=== PATIENT | male | born 1965 | race Caucasian/White ===

== ENCOUNTER → 2017-12-12 | Outpatient (CLI) | payer BC ==
[~2017-12-12] MED LIST: AMOXICILLIN875 MG PO; ATIVAN0.5 MG PO; AUGMENTIN XR 101 TER PO; COREG6.25 MG PO; COUMADIN6 M1 PO; COZAAR25 MG PO; DAYPRO600 M1 PO; LEVAQUIN750 M1 PO; LISINOPRIL5 MG PO; LOPRESSOR25 MG PO; METOPROLOL SUCC25 M2 PO; NEXIUM20 M1 PO; NEXIUM40 MG PO; NOVAPLUS V0.09 MG/Ac IH; PAXIL30 MG PO; PREDNISONE10 MG PO; VICODIN 500 MG-1 TAB PO
== END | disposition home or self-care (01) ==
LOC: RAD 14:51
DX: M25.461 Effusion, right knee (principal); M25.561 Pain in right knee

== ENCOUNTER → 2018-01-09 | Outpatient (CLI) | payer BC ==
[2018-01-09 13:36] LABS: BASO % 0.7 % (0.0-1.0); EOS # 0.1 10*3/uL (0.0-0.4); EOS % 2.5 % (1.0-4.0); HEMOGLOBIN 14.3 g/dl (14.0-18.0); LYMPH # 1.2 10*3/uL (1.3-4.4); LYMPH % 20.5 % (27.0-41.0); MEAN CELL VOLUME 97.2 fl (80.0-94.0); MEAN CORPUSCULAR HGB 33.1 pg (27.0-31.0); MEAN PLATELET VOLUME 9.7 fl (9.6-12.3); MONO # 0.6 10*3/uL (0.1-1.0); MONO % 11.2 % (3.0-9.0); NEUT # 3.6 10*3/uL (2.3-7.9); NEUT % 64.9 % (47.0-73.0); PLATELET COUNT AUTOMATED 260 10*3/uL (130-400); RED BLOOD COUNT 4.32 10*6/uL (4.50-5.90); RED CELL DISTRI WIDTH 14.2 % (0-14.5); WHITE BLOOD COUNT 5.6 10*3/uL (4.8-10.8)
[2018-01-09 13:45] LABS: ALBUMIN 3.8 gm/dl (3.1-4.5); ALKALINE PHOSPHATASE 66 U/L (45-117); BUN 10 mg/dl (7-24); CHLORIDE 106 mmol/L (98-107); CREATININE 0.99 mg/dL (0.70-1.30); POTASSIUM 4.2 mmol/L (3.5-5.1); SGOT/AST 31 IU/L (3-35); SGPT/ALT 26 U/L (12-78); SODIUM 142 mmol/L (136-145); TOTAL PROTEIN 7.5 gm/dL (6.4-8.2)
[2018-01-10 08:09] LABS: RHEUMATOID ARTHRITIS FACTOR 10.6 IU/mL (0.0-13.9)
== END | disposition home or self-care (01) ==
LOC: LAB 12:50
PROVIDERS: Family Medicine Adult Medicine
DX: L03.115 Cellulitis of right lower limb (principal)

== ENCOUNTER → 2018-08-01 | Outpatient (CLI) | payer BC ==
[2018-08-01 15:06] LABS: BASO # 0.1 10*3/uL (0.0-0.1); BASO % 0.8 % (0.0-1.0); EOS # 0.1 10*3/uL (0.0-0.4); EOS % 2.2 % (1.0-4.0); HEMATOCRIT 39.9 % (42.0-52.0); LYMPH # 1.2 10*3/uL (1.3-4.4); LYMPH % 19.6 % (27.0-41.0); MEAN CELL VOLUME 100.5 fl (80.0-94.0); MEAN CORPUSCULAR HGB 35.3 pg (27.0-31.0); MEAN CORPUSCULAR HGB CONC 35.1 g/dl (33.0-37.0); MEAN PLATELET VOLUME 9.6 fl (9.6-12.3); MONO # 0.8 10*3/uL (0.1-1.0); MONO % 13.2 % (3.0-9.0); NEUT # 3.8 10*3/uL (2.3-7.9); PLATELET COUNT AUTOMATED 166 10*3/uL (130-400); RED BLOOD COUNT 3.97 10*6/uL (4.50-5.90); RED CELL DISTRI WIDTH 12.9 % (0-14.5); WHITE BLOOD COUNT 5.9 10*3/uL (4.8-10.8)
[2018-08-01 15:27] LABS: ALKALINE PHOSPHATASE 82 U/L (45-117); BUN 11 mg/dl (7-24); CHLORIDE 103 mmol/L (98-107); CHOLESTEROL 188 mg/dL (<200); CREATININE 0.94 mg/dL (0.70-1.30); HDL CHOLESTEROL 90 mg/dl (40-60); LDL CHOLESTEROL 80 mg/dL (9-159); POTASSIUM 4.2 mmol/L (3.5-5.1); SGOT/AST 91 IU/L (3-35); SGPT/ALT 63 U/L (12-78); SODIUM 138 mmol/L (136-145); TOTAL PROTEIN 7.3 gm/dL (6.4-8.2); TRIGLYCERIDES 89 mg/dl (<150); VLDL CHOLESTEROL 18 mg/dL (6-40)
== END ==
LOC: LAB 14:47
PROVIDERS: Registered Nurse Flight
DX: M54.5 Low back pain (principal); M25.521 Pain in right elbow; M25.522 Pain in left elbow

== ENCOUNTER → 2018-08-02 | Outpatient (CLI) | payer BC | END | disposition home or self-care (01) | LOC: RAD 00:23 | DX: M51.36 Other intervertebral disc degeneration, lumbar region (principal); M85.88 Other specified disorders of bone density and structure, other site; M25.521 Pain in right elbow; M25.522 Pain in left elbow ==

== ENCOUNTER 2019-06-11 09:26 | Inpatient (IN) | payer BC ==
[~2019-06-11] VITALS: Ht 175.3 cm; Wt 64.9 kg
[2019-06-11] VITALS (15 sets, daily range): BP systolic 81–162; BP diastolic 58–123
--- NOTE | ~2019-06-11 | EKG ---
[place], [place] ELECTROCARDIOGRAM REPORT NAME: YASMANY BAIN UNIT #: [id number] ROOM: 518 DOCTOR: KATH DRAFT REPORT BIRTHDATE: [birth year] [facility] Test Date: 2019-06-11 Test Time: 09:33:30 Pat Name: YASMANY BAIN Department: Room: 518 Gender: M Freight Forwarder: : 1965 Requested By: ALEXY ENRIQUEZ Order Number: [id number] Reading MD: Akiko Perea Measurements Intervals [place] Rate: 107 P: LA: QRS: 32 QRSD: 95 T: 35 QT: 370 QTc: 494 Interpretive Statements Atrial fibrillation with RVR Borderline prolonged QT interval No previous ECG available for comparison Electronically Signed On 06-11-2019 10:53:00 PDT by Akiko Perea CM:EKGRPT:ELECTROCARDIOGRAM REPORT 0933 1053 ALEXY STOCKTON DRAFT REPORT ALEXY ENRIQUEZ M.D.
--- NOTE | ~2019-06-11 | CON ---
[place], [place] REPORT OF CONSULTATION NAME: YASMANY BAIN UNIT #: [id number] ROOM: [facility] DOCTOR: ARNULFO GUERRA MD BIRTHDATE: [birth year] DOS: 06/11/2019 REASON FOR CONSULTATION: Atrial fibrillation with a ventricular rate. HISTORY OF PRESENT ILLNESS: The patient is a 54-year-old gentleman with history of alcohol abuse, chronic pancreatitis, hypertension, acid reflux, who was admitted to the hospital for atrial fibrillation with rapid ventricular rate. Apparently, he returned from [place]. He is a construction project engineer. This morning, he did not feel well and developed some cold sweats and nausea and vomiting as well as lower back pain, presents to the Emergency Room and was in atrial fibrillation with rapid ventricular rate as well as alcohol withdrawals, admitted to the hospital and Cardiology was consulted. At the time of examination, the patient was alert, but having significant withdrawal from alcohol. Hence, history was obtained from the chart. There is no family at bedside. Ten systems are limited due to the patient being in alcohol withdrawals and there is no family at bedside. PAST MEDICAL HISTORY: 1. History of hypertension. 2. Significant alcohol abuse. 3. History of pancreatitis. 4. Ascending thoracic aortic aneurysm about 4 cm by CAT scan and 4.2 cm by echo in July 2015. 5. Left ventricular hypertrophy. 6. Chronic low back pain. 7. Vitiligo. PAST SURGICAL HISTORY: History of colonoscopy. ALLERGIES: Reviewed. HOME MEDICATIONS: Reviewed. SOCIAL HISTORY: The patient does consume significant amount of alcohol, does not use illicit drugs. PHYSICAL EXAMINATION: VITAL SIGNS: Last known blood pressure 143/80, pulse 110, respiratory rate 16, weight 64.9 kg, BMI 21. GENERAL: The patient is alert, having significant withdrawal from his alcohol. HEENT: Pupils are round and equal. Tongue was moist. NECK: Supple, no distended neck veins. No carotid bruit. CHEST: Symmetrical, nontender. LUNGS: A few scattered rhonchi. ABDOMEN: Bowel sounds normal. No palpable masses, no pulsatile mass. HEART: Irregularly irregular. Grade 1/6 systolic murmur. No palpable thrills. EXTREMITIES: Showed no edema. Distal pulses palpable. SKIN: Warm and dry. No cyanosis, no clubbing. [place], [place] REPORT OF CONSULTATION NAME: YASMANY BAIN UNIT #: [id number] ROOM: [facility] DOCTOR: MARI WAITE,ARNULFO BIRTHDATE: [birth year] RECTAL: Deferred. GENITOURINARY: Deferred. NEUROLOGIC: The patient is alert, having alcohol withdrawals hence neurological exam is incomplete. MEDICATIONS AND LABORATORIES: EKG showed atrial fibrillation with rapid ventricular rate. CBC unremarkable. Chemistry unremarkable. Potassium 4.5, magnesium 1.9. Echo from 08/07/2015 showed EF 55%, LV hypertrophy, diastolic dysfunction. Ascending aorta dilated at 4.2 cm. HOME MEDICATIONS: Reviewed. IMPRESSION: 1. Atrial fibrillation with rapid ventricular rate, CHADS2-VASc score is at least 1 for hypertension. The patient has history of cardiomyopathy with ejection fraction 40% in 2014, but echo from July 2015 showed ejection fraction 55%. 2. Alcohol withdrawal. 3. History of hypertension. 4. Possible pancreatitis. 5. Left ventricular hypertrophy. 6. Dilated ascending aortic root at 4.2 cm by echo in July 2015. 7. Hypoglycemia with hemoglobin A1c 5.9, likely pre-diabetic. 8. Acid reflux. RECOMMENDATIONS: 1. Continue IV Cardizem for rate control. 2. Continue Lovenox for anticoagulation. 3. A 2D echo was ordered and pending. 4. Risk Factors: Risk factor modification will be discussed when the patient is able to comprehend. 5. Resume his home metoprolol at a higher dose of 25 mg twice a day and wean off IV Cardizem. 6. No family at bedside at the time of examination. 7. Monitor his 2D echo. If not, he may need a CT of the chest for followup of his dilated thoracic ascending aorta. 8. He also needs aggressive blood pressure control. [place], [place] REPORT OF CONSULTATION NAME: YASMANY BAIN UNIT #: [id number] ROOM: [facility] DOCTOR: MARI WAITE,ARNULFO BIRTHDATE: [birth year] ARNULFO GUERRA MD CM:CONSTR:REPORT OF CONSULTATION 1435 06/22/19 0902 interface
--- NOTE | ~2019-06-11 | CON ---
[place], [place] REPORT OF CONSULTATION NAME: YASMANY BAIN UNIT #: [id number] ROOM: [facility] DOCTOR: GAIL PHILIPPE MD,JOSE BIRTHDATE: [birth year] DOS: 06/12/2019 PULMONARY CONSULTATION CONSULTATION REQUESTED BY: Hospitalist service. REASON FOR CONSULTATION: Management of acute respiratory failure. HISTORY OF PRESENT ILLNESS: This is a 54-year-old white male patient who was asked to be assessed. The patient was currently noted respiratory failure requiring high amount of sedation with acute delirium tremens on alcohol withdrawal. History could not be obtained from the patient history in this document is reviewed with medical record documentation by the other physician's notes. HISTORY OF PRESENT ILLNESS: This is a 54-year-old white male patient presented to the Emergency Room with history of essential hypertension. The patient has been reported symptoms of nausea, which has been present prior to assessment. He has not been reported any symptoms of chest pain. The vomiting ____ was also reported. The patient has been known with history of chronic alcohol dependence during hospitalization noted severe alcohol withdrawal. Also consider treatment for agitation. The patient has been intubated. The patient was started on sedation on intravenous Diprivan and other medications. Intubation was done without any difficulty. There were no abnormal respiratory symptoms also stated. He was also noted tachycardia on admission stated as atrial fibrillation, rapid ventricular response and receiving intravenous Cardizem drip for medical management. Tachycardia is still noted at the bedside appeared to be a sinus tachycardia at this time. The patient was continued on assist controlled, mechanical ventilation from yesterday as well. The oxygen supplementation was noted at 30%, decreased post-intubation. REVIEW OF SYSTEMS: Could not be completed since the patient is intubated. PAST MEDICAL HISTORY: 1. Noted alcohol dependence. 2. History of ascending thoracic aortic aneurysm stated. 3. Essential hypertension. 4. Past history of pancreatitis. 5. Previous history of pneumonia. 6. History of ____. 7. Intervertebral disk disease as well. 8. Gastroesophageal reflux disease. 9. History reported as listed as glucose intolerance. PAST SURGICAL HISTORY: No major surgeries. SOCIAL HISTORY: Noted heavy alcohol use. The patient gave details of the amount of alcohol consumed was not present. The patient has not reported any tobacco use or any illicit drugs. [place], [place] REPORT OF CONSULTATION NAME: YASMANY BAIN UNIT #: [id number] ROOM: [facility] DOCTOR: GAIL PHILIPPE MD,JOSE BIRTHDATE: [birth year] FAMILY HISTORY: The patient reported his father with complication of myocardial infarction with the age of 5656 years old with history about mom was unknown. HOME MEDICATIONS: Listed as 1. Flexeril, ____ Dexamfetamine 20 mg daily, reason of that use was unknown. 2. Diclofenac 7.5 mg p.o. b.i.d. 3. Nexium 20 mg daily. 4. Lisinopril 5 mg daily. 5. Metoprolol succinate 25 mg p.o. daily. DRUG ALLERGY HISTORY: Reported as no known drug allergies. CURRENT MEDICATIONS: Administered were noted as intravenous Cardizem 5 mg per hour and IV Diprivan. The DuoNeb q. 4 hours, Lovenox 70 mg IV b.i.d. therapeutic dose, hydroxyzine p.r.n. use 50 mg q.6 hours, Robaxin 750 mg q.6 hours p.r.n. for muscle spasm management, chlorhexidine solution. ALLERGIES: Noted as no known drug allergies. PHYSICAL EXAMINATION: GENERAL: A 54-year-old male patient appeared to be well developed, well nourished, currently intubated, effectively sedated with intravenous Versed and Diprivan use. Height of 5 feet 9 inches, weight 143 pounds with BMI 21. VITAL SIGNS: For this morning was noted the patient as sinus tachycardia with the patient's heart rate 127 beats per minute 135, heart rate of the patient noted previously in the ER, temperature noted normal in the last 24 hours, respiratory rate between 20-26. The blood pressure ranging between 142/84 to 126/67. Pulse oxygen saturation recorded as 100% on 35% oxygen. HEENT: The patient is orally intubated, orogastric tube is in place. Head was atraumatic. Eyes nonicterus. NECK: Supple. CARDIOVASCULAR: S1, S2 audible. LUNGS: Clear to auscultation bilaterally. ABDOMEN: Soft, nontender. Bowel sounds present. EXTREMITIES: The patient without any edema. MUSCULOSKELETAL: Without acute deformities. CENTRAL NERVOUS SYSTEM: Could not be examined. The patient is currently intubated. He was sedated at this time as well. LABORATORY DATA: The patient's CBC yesterday, WBC count normal, hemoglobin 13.7, MCV 103 with normal platelet count. CMP that was done yesterday glucose 160. Normal BUN and creatinine, sodium 132. AST was 78. The lactic acid yesterday noted 2.0. Troponin normal. Other 2 sets of troponin were normal yesterday as well. CBC that was done this morning, WBC count 9.1, hemoglobin 12.9, platelet count normal. CMP this morning, glucose 132, BUN and creatinine normal, potassium 3.2. Arterial blood gas that was done yesterday, pH of 7.41, pCO2 of 36, pO2 144 post-intubation on 35% oxygen. Arterial blood gas that was completed this morning, pH of 7.46, pCO2 of 36, pO2 of 98.4 on 35% oxygen. Chest x-ray: Endotracheal tube noted appropriately placed. There were no acute [place], [place] REPORT OF CONSULTATION NAME: YASMANY BAIN UNIT #: [id number] ROOM: [facility] DO[facility] [birth year] pulmonary infiltration. NG tube were noted in the stomach. IMPRESSION: 1. The patient with acute pulmonary insufficiency secondary to alcohol use ____ requiring sedation and management for that. 2. The patient with no past history of tobacco use. There was no finding of bronchospasm for acute infiltration or tracheobronchitis. 3. Mild hypokalemia, medication induced is very likely. 4. History of chronic alcohol dependence as well as history of essential hypertension. 5. Use of Adderall, the reason was unknown to me and not noted with any medical condition requires use of amphetamine in the home settings. 6. Atrial fibrillation/atrial tachycardia. The patient appeared to be in sinus at this time. 7. Mild hyperkalemia. 8. Respiratory alkalosis, induced by the mechanical ventilation. PLAN OF MANAGEMENT: Continue sedation with the use of predominantly benzodiazepine as 5 mg of Versed. Continuous administration and use of Diprivan. In addition to that sedation for sedation purposes. Discontinuation of the DuoNeb p.r.n. use will be made for any excessive secretion production bronchospasm. Sinus tachycardia, which is noted continued to be managed. The patient is getting therapeutic Lovenox. The will follow the recommendation and assessment of Cardiology Services for this. Other therapy, plan of management. Use of the ventilator bundle management. Trophic feeding could be started as well. Monitor otherwise will be continued closely for all of his illness from the clinical standpoint. The patient was noted respiratory alkalosis will be managed with the change in mechanical ventilator. The oxygen supplementation decreased 30% as well. Total time pulmonary critical care evaluation and management is 38 minutes. JOSE REYNOLDS MD CM:CONSTR:REPORT OF CONSULTATION 1633 06/12/192024 interface
--- NOTE | ~2019-06-11 | PR ---
[place], [place] PROGRESS NOTE NAME: YASMANY BAIN UNIT #: [id number] ROOM: [facility] DOCTOR: GAIL PHILIPPE MD,JOSE BIRTHDATE: [birth year] DOS: 06/15/2019 PULMONARY PROGRESS NOTE SUBJECTIVE: The patient noted comfortable at this time, but liberated from mechanical ventilator yesterday after the sedation was discontinued. The patient noted appropriately following vocal commands after that. The endotracheal tube was removed successfully, orogastric tube was also removed. He was started on the clear liquids well tolerated. Denies symptoms of chest pain at this time. Mild cough noted. There was no sputum expectoration. Denies any symptoms of wheezing or hemoptysis. Not noted any further evidence of alcohol withdrawal or delirium tremens portion post-liberation from mechanical ventilator, did not require any sedative or medication for agitation. OBJECTIVE: VITAL SIGNS: For the patient normal temperature, respiratory rate 18, heart rate 77, blood pressure 124/95. The pulse oxygen saturation recorded as 98% saturation at rest on room air this morning. HEENT: Examination shows head was atraumatic. Eyes nonicterus. NECK: Supple. CARDIOVASCULAR: S1, S2 is audible. LUNGS: The patient without any wheeze or crackle this morning of assessment. ABDOMEN: Soft, nontender. Bowel sounds present. EXTREMITIES: No new change. MUSCULOSKELETAL: Without any acute deformities. CENTRAL NERVOUS SYSTEM: Intact. LABORATORY DATA: CBC this morning, normal WBC count and platelet count, hemoglobin 11.3. CMP this morning is normal BUN and creatinine. Remaining ____ grossly normal. IMPRESSION: 1. The patient resolution of the alcohol withdrawal, delirium tremens effectively. 2. The patient with respiratory failure, status post liberation of mechanical ventilation, not noted on room air of oxygen. PLAN OF MANAGEMENT: No changes in the plan of care at this time. Continue the patient's current plan of management. He was planned for transfer to the medical floor that could be done from pulmonary and critical care standpoint. No other change in treatment will be necessary. Monitor respiratory symptom closely to make any changes or suggest changes accordingly. [place], [place] PROGRESS NOTE NAME: YASMANY BAIN UNIT #: [id number] ROOM: [facility] DOCTOR: JOSE BLANCO MD BIRTHDATE: [birth year] JOSE REYNOLDS MD CM:NANCYTRANS [id number] JOSE PHILIPPE MD 06/15/19 1251 interface
--- NOTE | ~2019-06-11 | PR ---
[place], [place] PROGRESS NOTE [id number] UNIT #: [id number] ROOM: [facility] DOCTOR: GAIL PHILIPPE MD,JOSE BIRTHDATE: [birth year] DOS: 06/13/2019 PULMONARY CRITICAL CARE EVALUATION AND MANAGEMENT SUBJECTIVE: The patient remains on mechanical ventilator this morning, noted agitation at that time and sedation has been decreased. The patient noted decreased consciousness prior to that, the patient was getting sedation intravenously. This morning, the patient was keeping his eyes closed. The patient tried to open his eyes, but so far does not follow any vocal commands. The patient is moving his upper and the lower extremities as well. Hemodynamically, he has not been noted any evidence of hypotension. The tachycardia for the noted yesterday seemed to be improved significantly. Low-grade fever was noted with a rectal temperature probe 101.6 degrees Fahrenheit. Secretion production was noted minimal to none from endotracheal aspirate. PHYSICAL EXAMINATION: GENERAL: The patient is currently sedated. He has been receiving mechanical ventilation. Orally intubated. Orogastric tube is in place. OBJECTIVE: VITAL SIGNS: Temperature of 100.2 degrees Fahrenheit, respiration 16-22, heart rate 100, 224 yesterday were noted. Blood pressure 150/85-105/74. Pulse oxygen saturation as 100% saturation. HEENT: The patient is intubated. NECK: Supple. Head was atraumatic. CARDIOVASCULAR: S1, S2 audible. LUNGS: Decreased breath in the lungs bilaterally. ABDOMEN: Soft, nontender. Bowel sounds present. EXTREMITIES: The patient without any acute edema. LABORATORY DATA: Chest x-ray that was done this morning reviewed patient endotracheal tube were noted as high riding. NG tube was noted. There were no acute pulmonary infiltrates. The arterial blood gas this morning, pH of 7.45, pCO2 of 34, pO2 of 74. Pulse oxygen is control, volume control, mechanical ventilation. The BMP: Sodium 133. Other electrolytes were normal. CBC this morning, white count 10.6, hemoglobin 12.9, platelet count was normal. IMPRESSION: 1. Stable respiratory status was noted at the present time with acute pulmonary insufficiency with sedation and alcohol withdrawal ____ delirium tremens. 2. The patient with a high riding endotracheal tube. There were no signs of any pulmonary infection including any pneumonia. PLAN OF MANAGEMENT: Discontinuation of sedation with intravenous Versed. Give the patient Diprivan, titrate and then gradual reduction to assess mental status. Altered mental status, improved. Consider ____ intubation and mechanical ventilation. In the meantime, endotracheal tube will need to be advanced 2.5 cm to keep it at appropriate level. Other therapy, plan of management, care plan of ventilator bundle management. Usual care, other [place], [place] PROGRESS NOTE NAME: YASMANY BAIN UNIT #: [id number] ROOM: [facility] DOCTOR: GAIL PHILIPPE MD,JOSE BIRTHDATE: [birth year] supportive therapy, plan of care and treatments. Total time of pulmonary and critical evaluation and management was 32 minutes. JOSE REYNOLDS MD CM:DEDE [id number] JOSE PHILIPPE MD 06/13/19 1538 interface
--- NOTE | ~2019-06-11 | PR ---
[place], [place] PROGRESS NOTE NAME: YASMANY BAIN UNIT #: [id number] ROOM: [facility] DOCTOR: GAIL PHILIPPE MD,JOSE BIRTHDATE: [birth year] DOS: 06/16/2019 SUBJECTIVE: The patient noted comfortable at this time, sitting on the bed this morning, eating breakfast, has not been reporting any symptoms of coughing, chest pain, shortness of breath this morning. There were no symptoms of headache or diplopia was not noted with any signs of further alcohol withdrawal, delirium tremens in the last 48 hours. OBJECTIVE: VITAL SIGNS: Normal temperature, respiratory rate 20, heart rate 80, blood pressure 120/83 noted at midnight. Pulse ox saturation recorded at rest on room air 98% saturation. HEENT: Examination shows head was atraumatic. Eyes nonicterus. NECK: Supple. CARDIOVASCULAR: S1, S2 audible. LUNGS: Noted without any wheeze or crackles. ABDOMEN: Soft, nontender. Bowel sounds present. EXTREMITIES: No acute change. IMPRESSION: Stable respiratory status were noted at present time, status post liberation from mechanical ventilator resolution of the delirium tremens and alcohol withdrawal. PLAN OF MANAGEMENT: No changes in the plan of care at this time. Continue current plan of care. The patient has been planned for transfer to the medical floor, pending bed. No new change in the patient's treatment will be recommended today. OJSE REYNOLDS MD CM:PNTRANS [id number] JOSE PHILIPPE MD 06/16/19 1415 interface
--- NOTE | ~2019-06-11 | PR ---
[place], [place] PROGRESS NOTE NAME: YASMANY BAIN [facility] #: [id number] UNIT #: [id number] ROOM: [facility] DOCTOR: GAIL PHILIPPE MD,JOSE BIRTHDATE: [birth year] DOS: 06/14/2019 PULMONARY CRITICAL CARE, EVALUATION, AND MANAGEMENT SUBJECTIVE: The patient was continued to be treated this time. He remains on mechanical ventilation. Mental status has not improved yesterday. The patient continued to be on the sedation with intravenous Diprivan. This morning noted sedation with IV Diprivan. He has not been noted any hemodynamic instability. There were no symptoms of chest pain, fever or chills stated by the patient. The patient has not been noted any symptoms of excessive secretion production from the endotracheal aspirate. He hemodynamically did not require any use of vasopressor therapy. He has not been reported any respiratory complication as well. PHYSICAL EXAMINATION: GENERAL: The patient remains on mechanical ventilator and sedated at the present time. VITAL SIGNS: For the patient, which are recorded showed the temperature noted as low grade, only rectal temperature of 100.2 degrees Fahrenheit, normal temperature, otherwise, respiratory rate 18-21, heart rate 90-93, blood pressure 117/83-123/83. Pulse oxygen saturation recorded on 30% oxygen 97% saturation. HEENT: The patient remains intubated. Head was atraumatic. Orogastric tube is in place. NECK: Supple. CARDIOVASCULAR: S1, S2 audible. LUNGS: No wheeze or crackles. ABDOMEN: Soft, nontender. Bowel sounds present. EXTREMITIES: Without acute edema. MUSCULOSKELETAL: Without any deformity. CENTRAL NERVOUS SYSTEM: Sedation at this time was noted. LABORATORY DATA: Arterial blood gas that was done this morning has a pH of 7.42, pCO2 of 36, pO2 86 with on 30% oxygen mechanical ventilation, assist control, volume control. The culture of the urine noted no bacterial growth. CBC: WBC count 12.8, hemoglobin 11.8, hematocrit of 34 and platelet count 147,000. The BMP that was done this morning, BUN 9, creatinine was normal. Phosphorus remains normal. Sodium 133. IMPRESSION: 1. The patient who has been currently noted with acute respiratory failure. The patient is currently intubated on the mechanical ventilator for the acute pulmonary insufficiency with sedation and alcohol withdrawal and delirium tremens. 2. Mild hyponatremia was also noted that remains persistent, most likely secondary to the history of alcohol use and volume depletion. 3. The patient with resolution of respiratory alkalosis. 4. The patient with change in mental status was noted related to the alcohol withdrawal. 5. Mild leukocytosis noted, most likely stress induced. There was no evidence of acute pneumonia noted on chest x-ray of yesterday. [place], [place] PROGRESS NOTE NAME: YASMANY BAIN UNIT #: [id number] ROOM: [facility] DOCTOR: GAIL PHILIPPE MD,JOSE BIRTHDATE: [birth year] PLAN OF MANAGEMENT: The patient's sedation will be completely discontinued this morning. He will be extubated/liberated from mechanical ventilator once the patient noted to be awake. Bronchodilators to be continued. Continue other ventilator bundle management, nutritional support. The chest x-ray done this morning remains clear of any acute infiltration. Endotracheal tube was advanced yesterday noted in appropriate position after advancing the endotracheal tube of 2.5 cm. Nutrition support will continue trophic feeding. All the ventilator bundle management continue liberated from mechanical ventilator. Supportive care, other plan of management, care plan treatment. Usual medical management. Total time for pulmonary critical care evaluation and management of the patient today's visit was 34 minutes. JOSE REYNOLDS MD CM:PNTRANS [id number] JOSE PHILIPPE MD 06/14/19 1330 interface
[2019-06-11 10:13] LABS: BASO # 0.1 10*3/uL (0.0-0.1); BASO % 0.8 % (0.0-1.0); EOS % 0.1 % (1.0-4.0); HEMATOCRIT 39.5 % (42.0-52.0); HEMOGLOBIN 13.7 g/dl (14.0-18.0); LYMPH # 0.3 10*3/uL (1.3-4.4); LYMPH % 4.3 % (27.0-41.0); MEAN CELL VOLUME 103.4 fl (80.0-94.0); MEAN CORPUSCULAR HGB 35.9 pg (27.0-31.0); MEAN CORPUSCULAR HGB CONC 34.7 g/dl (33.0-37.0); MEAN PLATELET VOLUME 9.8 fl (9.6-12.3); MONO # 0.6 10*3/uL (0.1-1.0); MONO % 7.7 % (3.0-9.0); NEUT # 6.5 10*3/uL (2.3-7.9); NEUT % 86.8 % (47.0-73.0); PLATELET COUNT AUTOMATED 152 10*3/uL (130-400); RED BLOOD COUNT 3.82 10*6/uL (4.50-5.90); RED CELL DISTRI WIDTH 12.6 % (0-14.5); WHITE BLOOD COUNT 7.5 10*3/uL (4.8-10.8)
[2019-06-11 10:28] LABS: ALBUMIN 3.9 gm/dl (3.1-4.5); ALKALINE PHOSPHATASE 123 U/L (45-117); BUN 10 mg/dl (7-24); CHLORIDE 96 mmol/L (98-107); CREATININE 0.74 mg/dL (0.70-1.30); POTASSIUM 4.5 mmol/L (3.5-5.1); SGOT/AST 78 IU/L (3-35); SGPT/ALT 70 U/L (12-78); SODIUM 132 mmol/L (136-145); THYROXINE (T4) TOTAL 7.5 ug/dl (4.5-12.1); TOTAL PROTEIN 7.6 gm/dL (6.4-8.2)
[2019-06-11 10:47] LABS: ETHYL ALCOHOL < 3.0 mg/dl (<3); TROPONIN I < 0.015 ng/ml (<0.045)
--- NOTE | 2019-06-11 10:48 | NUR ---
PT'S GIRLFRIEND YELLING HELP PT STANDING AT THE SIDE OF THE BED WITH SEVERE LEG CRAMPS.
--- NOTE | 2019-06-11 11:20 | NUR ---
PT REPORTS THAT HE KEEPS GETTING LEG CRAMPS AND HAVIGN TO GET UP QUICKLY. DR. ENRIQUEZ MADE AWARE. PTS HEART RATE IS 108 AT THIS TIME. BP IS 132/80. PT IS DISPHORETIC AND NAUSEATED.
--- NOTE | 2019-06-11 11:37 | NUR ---
PTS FIRST IV TAPE HAD COME LOOSE FROM THE PT BEING DIAPHORETIC. PT NEEDED A NEW IV. 22 PLACED IN R AC. DEMEROL GIVEN AND CARDIZEM REINITIATED. PT IS DIAPHORETIC WITH LEG CRAMPS. HEART RATE 120. 147/98. PENDING BED PLACEMENT UPSTAIRS. WILL CONTINUE TO MONITOR.
--- NOTE | 2019-06-11 11:43 | NUR ---
DOC MADE AWARE THAT THE PT DOES DRINK DAILY AND HE HAS NOT HAD A DRINK IN 2 DAYS. PT IS NOW HAVING NAUSEA, VOMITING, LEG CRAMPS AND IS DIAPHORETIC. PT THINKS IT MAY BE ALCOHOL WITHDRAWAL.
--- NOTE | 2019-06-11 12:18 | NUR ---
PT NOW READY FOR TRANSPORT TO THE FLOOR. BANANA BAG IS NOT HERE FROM PHARMACY YET SO I AM NOT ABLE TO INITIATE AT THIS TIME
--- NOTE | 2019-06-11 12:35 | NUR ---
Time: 1234 A 54 year old MALE admitted to 5E under services of BLADIMIR YI DO. Pt. arrived via bed from ER. Chief complaint: A-FIB WITH GAYLA RING
[2019-06-11] MEDS ORDERED: CYCLOBENZAPRINE10 MG PO (12:57)
[2019-06-11] MEDS ORDERED: AMPHETAMINE/DEX30 MG PO (12:57)
[2019-06-11] MEDS ORDERED: DICLOFENAC SODI75 M2 PO (12:58)
--- NOTE | 2019-06-11 14:00 | NUR ---
cardiology in room at time of transfer to iccu and aware of consult cardizem drip continues at 10 mg
--- NOTE | 2019-06-11 14:25 | NUR ---
1317-first dose of iv ativan 1 mg given 1330-Tanya updated the ativan is ineffective 1344- iv ativan 1 mg given 1350-attempting to do echo, pt hallucinating, pick at air, grabbing at echo machine, unable to reorient pt,pulling at ivs, wires, trying to get out of bed, swinging at air, Tanya updated, pt transferred to iccu
--- NOTE | 2019-06-11 15:01 | NUR ---
OT referral received when patient in 518-1. He was transferred to ICCU with change in medical status. When patient is medically stable and able to participate in therapy, please send new referral. Thank you Glenis Krishnan OTR/clifford
--- NOTE | 2019-06-11 15:02 | NUR ---
PHYSICAL THERAPY New physical therapy order required due to Patient being transferred to ICU-7. Will perform evaluation when new order has been received and Patient is medically stable/appropriate. Thank you Jeanna Bay, PT, DPT
--- NOTE | 2019-06-11 15:57 | NUR ---
1409 aRRIVAL VIA BED FROM MEDICAL FLOOR W/ full DT's , pt. is alcholic w/o alchol for2 days at home. Diaphoretic, restless, visual and auditory hallucinations. Frequent attempts to get " over there" requesting a screw coach driver , and searching for "my pen knife" . Phenobarbitol was given and ineffective to ease DT's. 1440 Dr. Diaz here and a decision was made for intubation. 1455 here Succicholine and etomadate were given Pt. was intubated w/ #7.5 ETT 23cm at lip level . Propofol up to infuse. OGT #18 was inserted and Hoffmann cath #16 was inserted . 1520 Versed was given for additional sedation due to straing against restraint. 1540 additional IV start to LA as IV MAGDALENA occluded. Continue awaiting CXR for ETT and oGT placements.
[2019-06-11 17:14] LABS: ABG BASE EXCESS -1.1 mmol/L (-2.0-2.0); ABG HCO3 22.9 mmol/l (22-26); ABG O2 SATURATION 99.3 % (95-97); ARTERIAL BLOOD GAS PCO2 36.5 mmHg (35-45); ARTERIAL BLOOD GAS PH 7.41 (7.35-7.45)
[2019-06-11 20:08] LABS: BILIRUBIN NEGATIVE (NEGATIVE); BLOOD 1+ (NEGATIVE); CLARITY SL CLOUDY (CLEAR); COLOR YELLOW (YELLOW); GLUCOSE 1+ (NEGATIVE); KETONE 2+ (NEGATIVE); LEUKO ESTERASE NEGATIVE (NEGATIVE); NITRITE NEGATIVE (NEGATIVE); SPECIFIC GRAVITY >= 1.030 (1.005-1.030)
--- NOTE | 2019-06-11 20:20 | NUR ---
URINE SPECIMEN SENT ORDERED.
[2019-06-11 20:27] LABS: BACTERIA TRACE; EPITHELIAL CELLS 0-2; WBC 0-2 wbc/hpf (0-5)
[2019-06-12] VITALS (12 sets, daily range): BP systolic 101–123; BP diastolic 75–85
--- NOTE | 2019-06-12 01:40 | NUR ---
COMPLETE BATH AND BED LINEN CHANGE DONE. PT AGITATED AND WAS COMBATIVE THROUGHOUT ENTIRE EVENT.
--- NOTE | 2019-06-12 02:55 | NUR ---
CARDIZEM GTT TO 5 MG/HR HR REMAINS IN UPPER 90'S - VERY LOW 100'S.
--- NOTE | 2019-06-12 04:08 | NUR ---
ROBAXIN AND VISTARIL TO PT FOR POSSIBLE MUSCLE DISCOMFORT/CRAMPING AND RELAXATION.
--- NOTE | 2019-06-12 04:30 | NUR ---
ROBAXIN AND VISTARIL APPEAR TO BE SOMEWHAT EFFECTIVE...PT APPEARS CALM.
[2019-06-12 06:05] LABS: ALBUMIN 3.5 gm/dl (3.1-4.5); ALKALINE PHOSPHATASE 89 U/L (45-117); BUN 8 mg/dl (7-24); CHLORIDE 98 mmol/L (98-107); CHOLESTEROL 222 mg/dL (<200); CREATININE 0.73 mg/dL (0.70-1.30); FREE T4 0.87 ng/dl (0.76-1.46); HDL CHOLESTEROL 98 mg/dl (40-60); LDL CHOLESTEROL 96 mg/dL (9-159); SGOT/AST 51 IU/L (3-35); SGPT/ALT 58 U/L (12-78); SODIUM 133 mmol/L (136-145); TRIGLYCERIDES 142 mg/dl (<150); VLDL CHOLESTEROL 28 mg/dL (6-40)
[2019-06-12 06:08] LABS: BASO % 0.3 % (0.0-1.0); EOS % 0.2 % (1.0-4.0); HEMATOCRIT 37.2 % (42.0-52.0); HEMOGLOBIN 12.9 g/dl (14.0-18.0); LYMPH # 0.5 10*3/uL (1.3-4.4); LYMPH % 5.8 % (27.0-41.0); MEAN CELL VOLUME 101.4 fl (80.0-94.0); MEAN CORPUSCULAR HGB 35.1 pg (27.0-31.0); MEAN CORPUSCULAR HGB CONC 34.7 g/dl (33.0-37.0); MEAN PLATELET VOLUME 10.3 fl (9.6-12.3); MONO # 0.8 10*3/uL (0.1-1.0); MONO % 9.3 % (3.0-9.0); NEUT # 7.6 10*3/uL (2.3-7.9); NEUT % 84.2 % (47.0-73.0); PLATELET COUNT AUTOMATED 155 10*3/uL (130-400); RED BLOOD COUNT 3.67 10*6/uL (4.50-5.90); RED CELL DISTRI WIDTH 12.9 % (0-14.5); WHITE BLOOD COUNT 9.1 10*3/uL (4.8-10.8)
--- NOTE | 2019-06-12 06:20 | NUR ---
CARDIZEM GTT INCREASED TO 10MG/HR PT HR 120/MIN SUSTAINED.
[2019-06-12 06:38] LABS: POTASSIUM 3.2 mmol/L (3.5-5.1)
[2019-06-12 07:19] LABS: ABG BASE EXCESS 2.8 mmol/L (-2.0-2.0); ABG O2 SATURATION 97.9 % (95-97); ARTERIAL BLOOD GAS PCO2 36.5 mmHg (35-45); ARTERIAL BLOOD GAS PH 7.465 (7.35-7.45); ARTERIAL BLOOD GAS PO2 98.4 mmHg (80-90)
--- NOTE | 2019-06-12 09:00 | NUR ---
TURNED AND REPOSITIONED ONTO LEFT SIDE. BECOMES AGITATED WITH ANY CARE. PULMOCARE INFUSING AT 20CC/HR VIA OGT. NO RESIDUAL NOTED. LUNGS CLEAR BILATERALLY. DIAZ DRAINING CLEAR YELLOW URINE. DIPRIVAN INFUSING AT 40 YANCY'S AND VERDES RUNNING AT 5MG/HR. CARDIZEM RUNNING AT 10MG/HR
--- NOTE | 2019-06-12 11:00 | NUR ---
CARDIZEM GTT INCREASED TO 15MG/HR FOR HEART RATE 130'S SINUS TACHYCARDIA
--- NOTE | 2019-06-12 18:00 | NUR ---
DR. DELONG HERE TO SEE PATIENT
[2019-06-12 18:08] LABS: ABG BASE EXCESS 1.8 mmol/L (-2.0-2.0); ABG HCO3 24.8 mmol/l (22-26); ABG O2 SATURATION 98.5 % (95-97); ARTERIAL BLOOD GAS PCO2 35.2 mmHg (35-45); ARTERIAL BLOOD GAS PH 7.462 (7.35-7.45); ARTERIAL BLOOD GAS PO2 92.6 mmHg (80-90)
[2019-06-13] VITALS (12 sets, daily range): BP systolic 100–117; BP diastolic 65–85
--- NOTE | 2019-06-13 00:45 | NUR ---
PATIENT MEDICATED WITH ROBAXIN AND VISTARIL FOR INCREASED RESTLESSNESS, PATIENT HAD INITIAL COMPLAINTS OF BACK PAIN AND ACHING ON ADMISSION TO HOSPITAL. RN WILL MONITOR
[2019-06-13 05:30] LABS: BASO % 0.4 % (0.0-1.0); EOS # 0.1 10*3/uL (0.0-0.4); EOS % 0.8 % (1.0-4.0); HEMATOCRIT 36.9 % (42.0-52.0); HEMOGLOBIN 12.9 g/dl (14.0-18.0); LYMPH # 0.7 10*3/uL (1.3-4.4); LYMPH % 6.9 % (27.0-41.0); MEAN CELL VOLUME 103.4 fl (80.0-94.0); MEAN CORPUSCULAR HGB 36.1 pg (27.0-31.0); MEAN PLATELET VOLUME 10.5 fl (9.6-12.3); MONO # 1.2 10*3/uL (0.1-1.0); MONO % 11.4 % (3.0-9.0); NEUT # 8.5 10*3/uL (2.3-7.9); NEUT % 80.2 % (47.0-73.0); PLATELET COUNT AUTOMATED 142 10*3/uL (130-400); RED BLOOD COUNT 3.57 10*6/uL (4.50-5.90); RED CELL DISTRI WIDTH 13.1 % (0-14.5); WHITE BLOOD COUNT 10.6 10*3/uL (4.8-10.8)
[2019-06-13 05:57] LABS: BUN 13 mg/dl (7-24); CHLORIDE 101 mmol/L (98-107); CREATININE 0.83 mg/dL (0.70-1.30); PHOSPHOROUS 2.8 mg/dL (2.5-4.9)
[2019-06-13 06:20] LABS: SODIUM 133 mmol/L (136-145)
[2019-06-13 06:29] LABS: POTASSIUM 4.3 mmol/L (3.5-5.1)
[2019-06-13 07:17] LABS: ABG BASE EXCESS 0.4 mmol/L (-2.0-2.0); ABG HCO3 23.5 mmol/l (22-26); ABG O2 SATURATION 95.5 % (95-97); ARTERIAL BLOOD GAS PCO2 34.2 mmHg (35-45); ARTERIAL BLOOD GAS PH 7.45 (7.35-7.45); ARTERIAL BLOOD GAS PO2 74.4 mmHg (80-90)
--- NOTE | 2019-06-13 17:07 | NUR ---
1330 Dr. Del Cid in [place] dc'd. Minimal propofol. Pt immediately restless and scooting about in bed. Dr. Nair was notified of < 30cc/h UO . Orders recieved. IVF infusing. Medicated for continued restlessness, repositioned , currently resting quietly.
--- NOTE | 2019-06-13 20:51 | NUR ---
PT. RESTING IN BED, RESTLESS AT TIMES. VERSED GIVEN ORDERED PRN. DIPROVAN CONTINUES AT 30MICS. CARDIZEM ALSO CONTINUES AT 5MG/HR. IVF ALSO CONTINUES ORDERED. ALL IV SITES PATENT. LUNGS CLEAR BILAT. ABDOMEN SOFT, NONDISTENDED AND NORMO. NO PERIPHERAL EDEMA NOTED. DIAZ CATHETER DRAINING A DARK CLOUDY GREEN URINE. PULMOCARE TUBE FEEDING CONTINUES VIA OGT, NO RESIDUAL NOTED AND PLACEMENT CONFIRMED WITH AIR BOLUS. PT. GIVEN ORAL MOUTH CARE AND SUCTIONED VIA ENDO AND ORALLY FOR MODERATE AMTS OF THIN SECREATIONS. SOFT WRIST RESTRAINTS BILAT TO PREVENT ACCIDENTAL SELF EXTUBATION. BELTRAN HEART RN
--- NOTE | 2019-06-13 22:53 | NUR ---
VERSED GIVEN AGAIN FOR RESTLESSNESS AND DIPROVAN INCREASED TO 40 MICS. VERSED TEMPORARILY EFFECTIVE. BELTRAN HEART RN
[2019-06-14] VITALS (9 sets, daily range): BP systolic 105–133; BP diastolic 42–85
--- NOTE | 2019-06-14 01:04 | NUR ---
PT. GIVEN TYLENOL AND VERSED AT 0105 FOR TEMP OF 100.9 AND RESTLESSNESS. VERSED IMMEDIATELY EFFECTIVE.
--- NOTE | 2019-06-14 03:23 | NUR ---
PT. GIVEN VERSED FOR RESTLESSNESS. BELTRAN HEART RN
[2019-06-14 04:46] LABS: BASO % 0.3 % (0.0-1.0); EOS # 0.1 10*3/uL (0.0-0.4); EOS % 0.6 % (1.0-4.0); HEMOGLOBIN 11.8 g/dl (14.0-18.0); LYMPH # 0.7 10*3/uL (1.3-4.4); LYMPH % 5.2 % (27.0-41.0); MEAN CELL VOLUME 104.3 fl (80.0-94.0); MEAN CORPUSCULAR HGB 36.2 pg (27.0-31.0); MEAN CORPUSCULAR HGB CONC 34.7 g/dl (33.0-37.0); MEAN PLATELET VOLUME 10.5 fl (9.6-12.3); MONO # 1.1 10*3/uL (0.1-1.0); MONO % 8.6 % (3.0-9.0); NEUT # 10.8 10*3/uL (2.3-7.9); NEUT % 84.8 % (47.0-73.0); PLATELET COUNT AUTOMATED 147 10*3/uL (130-400); RED BLOOD COUNT 3.26 10*6/uL (4.50-5.90); RED CELL DISTRI WIDTH 12.8 % (0-14.5); WHITE BLOOD COUNT 12.8 10*3/uL (4.8-10.8)
[2019-06-14 04:58] LABS: BUN 9 mg/dl (7-24); CHLORIDE 102 mmol/L (98-107); CREATININE 0.61 mg/dL (0.70-1.30); POTASSIUM 3.7 mmol/L (3.5-5.1); SODIUM 133 mmol/L (136-145)
[2019-06-14 04:59] LABS: PHOSPHOROUS 2.9 mg/dL (2.5-4.9)
--- NOTE | 2019-06-14 05:59 | NUR ---
VERSED GIVEN AT 0530 FOR RESTLESSNESS AND ATTEMPTING TO SIT UP. IMMEDIATELY EFFECTIVE.
[2019-06-14 07:08] LABS: ABG BASE EXCESS -0.1 mmol/L (-2.0-2.0); ABG HCO3 23.4 mmol/l (22-26); ABG O2 SATURATION 97.1 % (95-97); ARTERIAL BLOOD GAS PCO2 36.4 mmHg (35-45); ARTERIAL BLOOD GAS PH 7.426 (7.35-7.45); ARTERIAL BLOOD GAS PO2 86.5 mmHg (80-90)
--- NOTE | 2019-06-14 10:18 | NUR ---
Aimee Arciniega and Maria Eugenia in to evaulate. Titrating propofol down GF in to visit. Dr. Quigley in , Ok to dc rakan.
--- NOTE | 2019-06-14 10:22 | NUR ---
Cardizem and propofol to OFF.
--- NOTE | 2019-06-14 10:30 | NUR ---
Water Project Manager in to talk to patient. Patient states lives at home with his significant other. There are 0 steps in the home. Physician: Norberto Guillen [facility]acy: [facility] Home health services: none Patient's level of ADLs: INDEPENDENT Patient has working utilities: yes DME: none Follow-up physician's appointment after d/c: will be made by the hospitalist nurse director upon discharge Does patient want to access PORTAL?: no Discharge plan discussed with significant other who is at his bedside. He lives at home with his significant other. He is normally independent in his ADLs and ambulation. Discussed short term SNF and she refuses. Discussed home health care services and she denies any home needs at this time. When medically stable he will be discharged to home. She states he is awaiting an MRI of his back as that causes him a lot of trouble. Significant other will provide transportation on discharge. SHAILESH MURRY
--- NOTE | 2019-06-14 12:04 | NUR ---
aWAKE AND ALERT. dR. Pearce WAS NOTIFIED AND ORDER FOR EXTUBATION RECIEVED. rt NOTIFIED AND IN TO EXTUBATE Patient extubated on physician's order. Nasal Cannula 2L. Pulse oximeter on with alarms set at 10% below patient's baseline. Pharyngeal reflex present prior to extubation. Patient encouraged to cough and deep breathe. Patient observed for skin color and temperature, monitor rhythm, respiratory rate and effort, and level of consciousness. NPO for 4 hours. Patient tolerated procedure well . OGT was also removed at the time of extubation. CATA Nair in to visit. Pt remains somulent w/ resp ERND. . KWAME NINO
--- NOTE | 2019-06-14 13:44 | NUR ---
PHYSICAL THERAPY Patient was transferred to ICU 7 from 8-1. Awaiting new order for PT evaluation. Pt is on a vent. Will evaluate when medically appropriate and new order received. Thank you Jeanna Bay PT, DPT
--- NOTE | 2019-06-14 13:58 | NUR ---
Nursing screen received and chart reviewed. Patient is currently on a ventilator. If patient has a decline in ADLs or functional mobility/transfers, please send OT orders when patient is off the vent. Thank you. Shahnaz Cummings, OTR/L
--- NOTE | 2019-06-14 15:17 | NUR ---
Nutritional Support Services Note: Pt triggered to BMI<19. Current BMI calculated to 21.2 which is normal weight. Ht.5'9 Wt.143#. Will follow as needed. Pt is currently on a full liquid diet. Will follow as needed. Advance diet as tolerated. Akila Viera Rdn Ld
--- NOTE | 2019-06-14 16:37 | NUR ---
Linen change and re-positioned. Popsicle given and taken well. Spouse in to visit. MRI form filled and faxed.
--- NOTE | 2019-06-14 20:27 | NUR ---
PT. RESPOSITIONING SELF IN BED. IVF CONTINUES ORDERED VIA RIGHT UPPER ARM IV. DIAZ DRAINING A PALE GREEN URINE. LUNGS DIMINISHED BUT CLEAR BILAT, PULSE OX 96% ON RA. ABDOMEN SOFT, NONDISTENDED AND NORMO. NO PERIPHERAL EDEMA NOTED. BELTRAN HEART RN
[2019-06-15] VITALS: BP 111/84
[2019-06-15 04:00] VITALS: BP 118/86
[2019-06-15 04:33] LABS: BASO # 0.1 10*3/uL (0.0-0.1); BASO % 0.6 % (0.0-1.0); EOS # 0.4 10*3/uL (0.0-0.4); EOS % 3.7 % (1.0-4.0); HEMOGLOBIN 11.3 g/dl (14.0-18.0); LYMPH # 0.8 10*3/uL (1.3-4.4); LYMPH % 8.2 % (27.0-41.0); MEAN CELL VOLUME 104.8 fl (80.0-94.0); MEAN CORPUSCULAR HGB 35.9 pg (27.0-31.0); MEAN CORPUSCULAR HGB CONC 34.2 g/dl (33.0-37.0); MEAN PLATELET VOLUME 10.5 fl (9.6-12.3); MONO % 10.6 % (3.0-9.0); NEUT # 7.4 10*3/uL (2.3-7.9); NEUT % 76.5 % (47.0-73.0); PLATELET COUNT AUTOMATED 185 10*3/uL (130-400); RED BLOOD COUNT 3.15 10*6/uL (4.50-5.90); RED CELL DISTRI WIDTH 12.4 % (0-14.5); WHITE BLOOD COUNT 9.7 10*3/uL (4.8-10.8)
[2019-06-15 04:47] LABS: ALBUMIN 2.5 gm/dl (3.1-4.5); ALKALINE PHOSPHATASE 69 U/L (45-117); BUN 7 mg/dl (7-24); CHLORIDE 108 mmol/L (98-107); CREATININE 0.62 mg/dL (0.70-1.30); PHOSPHOROUS 2.9 mg/dL (2.5-4.9); POTASSIUM 3.5 mmol/L (3.5-5.1); SGOT/AST 22 IU/L (3-35); SGPT/ALT 27 U/L (12-78); SODIUM 139 mmol/L (136-145); TOTAL PROTEIN 5.9 gm/dL (6.4-8.2)
[2019-06-15 08:00] VITALS: BP 124/95
--- NOTE | 2019-06-15 08:28 | NUR ---
DR JENKINS IN TO SEE PT. NEW ORDERS RECEIVED.
--- NOTE | 2019-06-15 08:34 | NUR ---
DR REYNOLDS IN TO SEE PT.
--- NOTE | 2019-06-15 10:30 | NUR ---
Financial Aid Administrator in to see patient. No new needs or request at this time. He denies any home needs. When medically stable he will be discharged to home.
--- NOTE | 2019-06-15 10:33 | NUR ---
MEDICATED PT PER PRN ORDER WITH ROBAXIN FOR C/O MUSCLE SPASM IN LOWER BACK.
--- NOTE | 2019-06-15 10:38 | NUR ---
PT TO MRI VIA WC.
--- NOTE | 2019-06-15 11:25 | NUR ---
PT RETURNED FROM MRI. PT TOLERATED PROCEDURE WELL. PT STATES RELIEF OF BACK SPASM WITH EARLIER ROBAXIN.
[2019-06-15 12:00] VITALS: BP 125/85
--- NOTE | 2019-06-15 12:05 | NUR ---
DIAZ CATHETER D/C'D INTACT. PT TOLERATED PROCEDURE WELL.
--- NOTE | 2019-06-15 12:30 | NUR ---
PHYSICAL THERAPY Physical therapy evaluation completed, ICU-7. Full details to follow. Moderate complexity determined after evaluation/chart review, [address]. PT to work on balance, safety, endurance, strength and transfers. Recommending home health or outpatient therapy at discharge, assuming Pt will have some assistance available (per significant other) upon discharge home. Pt has some balance concerns but is otherwise demonstrating fair/good mobility. Thank you Jeanna Bay, PT, DPT
--- NOTE | 2019-06-15 15:30 | NUR ---
RESTING IN BED. NO COMPLAINTS VOICED. SCATTERED RHONCHI HEARD IN LUNG FLORENTINO. NO EDEMA NOTED. AFEBRILE. MIDLINE INTACT TO RAN AND FLUSHES EASILY. NO TREMORS NOTED.
[2019-06-15 16:00] VITALS: BP 132/95
--- NOTE | 2019-06-15 17:34 | NUR ---
MEDICATED WITH ROBAXIN ORDERED FOR COMPLAINTS OF LOWER BACK PAIN. RATES PAIN A 5 ON A PAIN SCALE OF 1-10
--- NOTE | 2019-06-15 18:15 | NUR ---
RESTING ON LEFT SIDE. VOICES THAT ROBAXIN WAS EFFECTIVE
--- NOTE | 2019-06-15 18:56 | NUR ---
Shift chart check completed.24 HR chart check completed.
--- NOTE | 2019-06-15 19:48 | NUR ---
ON ASSESSMENT PATIENT SLEEPING SOUNDLY BUT AROUSES TO HIS NAME. HE DENIES PAIN OR SHORTNESS OF BREATH AT THIS TIME. HIS MONITOR IS SINUS RHYTHM. BED IS IN LOW POSITION WITH WHEELS LOCKED. WATER AND CALL LIGHT IN REACH. SEE ALL APPROPRIATE INTERVENTIONS.
[2019-06-15 20:00] VITALS: BP 124/87
--- NOTE | 2019-06-15 23:31 | NUR ---
REPOSITIONED FOR COMFORT. NO DYSRHYTHMIAS. HOPING TO GO HOME TOMORROW.
[2019-06-16] VITALS: BP 123/83
--- NOTE | 2019-06-16 01:41 | NUR ---
PT UP TO BSC FOR MUSHY HENSON BM. ASSISTED IN TO BED AND POSITION OF COMFORT. NO SEIZURE ACTIVITY OR TREMORS.
[2019-06-16 05:19] LABS: BUN 9 mg/dl (7-24); CHLORIDE 104 mmol/L (98-107); CREATININE 0.58 mg/dL (0.70-1.30); POTASSIUM 3.3 mmol/L (3.5-5.1); SODIUM 137 mmol/L (136-145)
[2019-06-16 06:52] LABS: BASO # 0.1 10*3/uL (0.0-0.1); BASO % 0.9 % (0.0-1.0); EOS # 0.4 10*3/uL (0.0-0.4); EOS % 7.6 % (1.0-4.0); HEMATOCRIT 35.8 % (42.0-52.0); HEMOGLOBIN 12.2 g/dl (14.0-18.0); LYMPH # 0.9 10*3/uL (1.3-4.4); LYMPH % 16.2 % (27.0-41.0); MEAN CELL VOLUME 103.2 fl (80.0-94.0); MEAN CORPUSCULAR HGB 35.2 pg (27.0-31.0); MEAN CORPUSCULAR HGB CONC 34.1 g/dl (33.0-37.0); MEAN PLATELET VOLUME 10.4 fl (9.6-12.3); MONO % 17.1 % (3.0-9.0); NEUT # 3.4 10*3/uL (2.3-7.9); NEUT % 57.7 % (47.0-73.0); RED BLOOD COUNT 3.47 10*6/uL (4.50-5.90); WHITE BLOOD COUNT 5.8 10*3/uL (4.8-10.8)
[2019-06-16 06:56] LABS: PLATELET COUNT AUTOMATED 277 10*3/uL (130-400)
--- NOTE | 2019-06-16 07:38 | NUR ---
MEDICATED PT PER PRN ORDER WITH ROBAXIN AND MOTRIN FOR LOWER BACK DISCOMFORT.
--- NOTE | 2019-06-16 08:00 | NUR ---
PT STATES RELIEF OF LOWER BACK PAIN WITH EARLIER PRN MEDS.
--- NOTE | 2019-06-16 10:25 | NUR ---
PHYSICAL THERAPY Patient seen this am 1;1 for therapy visit and was sitting up on EOB with his Girlfriend present upon therapist arrival. patient identified by name / and reports no new c/o's at this time. Patient stated he was feeling a little better with improved clarity and transfers sit to stand VIOLIN RESTORER/CGA. Patient ambulates VIOLIN RESTORER/CGA, 50'x 1, demonstrating slow stevie with decreased stride. Patient educated on safe step sequence while navigating up/down stairway and was able to safely negotiate 10 steps with use of single handrail support, VIOLIN RESTORER/CGA, demonstrating single step sequence. Patient returned to EOB sit 50'x 1 with increased fatigue noted. Patient also completed eyes opern / closed with no LOB and tolerated single leg stance, L side 3 seconds , R side 2 seconds prior to LOB. Patient remained EOB sit under ICCU nursing Supervision and will continue per POC as tolerated, total treatment time 18 minutes. Thomas Dickerson, PACKER DRIED BEEF
[2019-06-16] MEDS ORDERED: METOPROLOL TART50 M1 OGT (11:10)
--- NOTE | 2019-06-16 11:18 | NUR ---
DR JENKINS IN TO SEE PT. PT TO BE DISCHARGED TODAY.
[2019-06-16] MEDS ORDERED: METOPROLOL TART50 M1 PO (11:19)
--- NOTE | 2019-06-16 11:31 | NUR ---
Discharge instructions reviewed with patient/family. Patient receptive and verbalizes understanding. Follow-up care arranged. Written instructions given to patient/family. DONOVAN
--- NOTE | 2019-06-17 07:58 | NUR ---
PHYSICAL THERAPY CO-SIGN I approve of the Physical Therapy notes written above. Jeanna Bay, PT, DPT
== END 2019-06-16 11:56 | disposition home or self-care (01) | DRG 308 ==
LOC: ED 09:26 → EDHOLD 11:33 → ICCU 11:33 → 5E 12:04 → ICCU 14:16
PROVIDERS: Emergency Medicine; Family Medicine; Hospitalist; Internal Medicine Critical Care Medicine; Registered Nurse; Student in an Organized Health Care Education/Training Program; ADMIT Family Medicine
DX: I48.91 Unspecified atrial fibrillation (principal); J96.00 Acute respiratory failure, unspecified whether with hypoxia or hypercapnia; E87.1 Hypo-osmolality and hyponatremia; F10.231 Alcohol dependence with withdrawal delirium; R44.3 Hallucinations, unspecified; E87.3 Alkalosis; K86.1 Other chronic pancreatitis; D72.829 Elevated white blood cell count, unspecified; I42.9 Cardiomyopathy, unspecified; G89.29 Other chronic pain; M54.5 Low back pain; I71.2 Thoracic aortic aneurysm, without rupture; I47.1 Supraventricular tachycardia; E16.2 Hypoglycemia, unspecified; D53.9 Nutritional anemia, unspecified; E87.6 Hypokalemia; N06.9 Isolated proteinuria with unspecified morphologic lesion; R74.8 Abnormal levels of other serum enzymes; R82.4 Acetonuria; I10 Essential (primary) hypertension; E87.8 Other disorders of electrolyte and fluid balance, not elsewhere classified; K21.9 Gastro-esophageal reflux disease without esophagitis; L80 Vitiligo; Z87.891 Personal history of nicotine dependence; Z87.01 Personal history of pneumonia (recurrent); Z82.49 Family history of ischemic heart disease and other diseases of the circulatory system; Z83.49 Family history of other endocrine, nutritional and metabolic diseases; Z79.899 Other long term (current) drug therapy

== ENCOUNTER 2020-04-12 19:44 | Emergency (ER) | payer SELFPAY ==
[~2020-04-12] VITALS: Ht 175.2 cm; Wt 56.7 kg
[~2020-04-12 19:44] MED LIST changes: +AMPHETAMINE/DEX30 MG PO; +CYCLOBENZAPRINE10 MG PO; +DICLOFENAC SODI75 M2 PO; +METOPROLOL TART50 M1 OGT; +METOPROLOL TART50 M1 PO
[2020-04-12] MEDS ORDERED: MEDROL DOSEPAK4 MG PO (20:05)
== END 2020-04-12 20:30 | disposition home or self-care (01) ==
LOC: ED 19:44
DX: S60.512A Abrasion of left hand, initial encounter (principal); S60.511A Abrasion of right hand, initial encounter; G89.29 Other chronic pain; M54.5 Low back pain; Z79.899 Other long term (current) drug therapy; W18.30XA Fall on same level, unspecified, initial encounter; Y93.89 Activity, other specified; Y92.89 Other specified places as the place of occurrence of the external cause; Y99.9 Unspecified external cause status

== ENCOUNTER 2020-05-21 13:41 | Inpatient (IN) | payer SELFPAY ==
[~2020-05-21] VITALS: Ht 175.2 cm; Wt 53.1 kg
[~2020-05-21 13:41] MED LIST changes: +MEDROL DOSEPAK4 MG PO
[2020-05-21 13:49] VITALS: BP 106/88
[2020-05-21 14:46] LABS: ALBUMIN 3.1 gm/dl (3.1-4.5); ALKALINE PHOSPHATASE 206 U/L (45-117); BUN 4 mg/dl (7-24); CHLORIDE 101 mmol/L (98-107); CREATININE 0.88 mg/dL (0.70-1.30); IRON 149 ug/dL (65-175); POTASSIUM 2.9 mmol/L (3.5-5.1); SGOT/AST 256 IU/L (3-35); SGPT/ALT 88 U/L (12-78); SODIUM 136 mmol/L (136-145); TOTAL IRON BINDING CAPACITY 210 ug/dl (250-450); TOTAL PROTEIN 6.2 gm/dL (6.4-8.2)
[2020-05-21 14:53] LABS: HEMATOCRIT 35.3 % (42.0-52.0); MEAN CELL VOLUME 99.2 fl (80.0-94.0); MEAN CORPUSCULAR HGB 35.4 pg (27.0-31.0); MEAN CORPUSCULAR HGB CONC 35.7 g/dl (33.0-37.0); MEAN PLATELET VOLUME 10.9 fl (9.6-12.3); PLATELET COUNT AUTOMATED 41 10*3/uL (130-400); RED BLOOD COUNT 3.56 10*6/uL (4.50-5.90); RED CELL DISTRI WIDTH 12.7 % (0-14.5); WHITE BLOOD COUNT 2.4 10*3/uL (4.8-10.8)
[2020-05-21 15:00] LABS: BILIRUBIN 2+ (Negative); BLOOD Negative (Negative); CLARITY Clear (Clear); COLOR Dark Yellow (Yellow); GLUCOSE Negative (Negative); KETONE Negative (Negative); NITRITE Positive (Negative); SPECIFIC GRAVITY 1.025 (1.001-1.030)
[2020-05-21 15:03] LABS: URINE AMPHETAMINES < 1000 (1000ng/ml); URINE BARBITURATES < 200 (200ng/ml); URINE BENZODIAZEPINES < 200 (200ng/ml); URINE CANNABINOIDS (THC) > 50 (50ng/ml); URINE COCAINE < 300 (300ng/ml); URINE METHADONE < 300 (300ng/ml); URINE OPIATES < 300 (300ng/ml); URINE PHENCYCLIDINE < 25 (25ng/ml)
--- NOTE | 2020-05-21 15:05 | NUR ---
NURSE REPORT TO BRIGHT LEGGETT, FOR CONTINUATION OF CARE.
[2020-05-21 15:13] LABS: BASOPHILS 2 % (0-1); PLATELET SUFFICIENCY LOW (NORMAL); TOTAL CELLS COUNTED 100 #CELLS
[2020-05-21 15:19] LABS: EPITHELIAL CELLS 0-2; LEUKO ESTERASE 1+ (Negative); MUCOUS 2+; WBC 0-2 wbc/hpf (0-5)
[2020-05-21 15:52] VITALS: BP 128/84
[2020-05-21 17:00] VITALS: BP 124/97
--- NOTE | 2020-05-21 17:00 | NUR ---
A 55, admitted to , under the services of SHINE Guy DO with a diagnosis of TRANSAMINITIS. Chief complaint is BACK PAIN. Patient arrived via wheel chair from ER. Monitor applied. Initial assessment completed. Vital signs taken and recorded. SHINE GUY DO notified of admission to the unit. Orders received. See assessment for past medical history, medications and allergies. Patient and/or family oriented to unit. [facility] visitation policy reviewed. Clothing/patient valuable form completed. ITALIA MUNSON
[2020-05-21] MEDS ORDERED: PRILOSEC20 M1 PO (17:23)
--- NOTE | 2020-05-21 19:30 | NUR ---
PATIENT ASSISTED TO RESTROOM AT THIS TIME. TREMORS NOTED IN ALL EXTREMETIES. LARGE RUNNY BOWEL MOVEMENT NOTED. PATIENT STATED THAT HE WAS INTUBATED THE LAST TIME HE WAS HERE FOR ALCOHOL WITHDRAWAL. DR LINN CARRERA.
--- NOTE | 2020-05-21 19:45 | NUR ---
MEDICATED WITH PRN ATIVAN FOR TREMORS AND AGITATION, AND BENTYL FOR ABDOMINAL CRAMPS. WILL MONITOR
[2020-05-21 20:00] VITALS: BP 113/83
--- NOTE | 2020-05-21 20:45 | NUR ---
PATIENT RESTING WITH EYES CLOSED. ARROUSES EASILY. TREMORS STILL VISIBLE. ATIVAN SEEMS SOMEWHAT EFFECTIVE
--- NOTE | 2020-05-21 21:32 | NUR ---
DR ESTEVES AWARE OF CRITICAL LACTIC ACID
--- NOTE | 2020-05-21 22:13 | NUR ---
PATIENT SETTING OFF BED ALARM. ATTEMPTING TO AMBULATE TO RESTROOM. PATIENT ALMOST FEEL TWO TIMES. THIS RN ASSISTED HIM BACK TO BED. PATIENT IS AGITATED. TREMORS NOTED IN ALL EXTREMITIES. BED AND BODY ALARM ON, BED IN LOWEST POSITION, CALL LIGHT IN REACH
[2020-05-22] VITALS: BP 129/88
--- NOTE | 2020-05-22 00:45 | NUR ---
PATIENT RESTING WITH NO S/S OF DISTRESS. BED IN LOWEST POSITION, BODY ALARM ON, CALL LIGHT IN REACH
--- NOTE | 2020-05-22 02:50 | NUR ---
MEDICATED WITH PRN IV ATIVAN FOR TREMORS AND AGITATION. WILL MONITOR
--- NOTE | 2020-05-22 03:50 | NUR ---
PATIENT RESTING IN BED, TOSSING AND TURNING. TREMORS STILL NOTED. MEDICATION NOT EFFECTIVE
--- NOTE | 2020-05-22 05:35 | NUR ---
PATIENT ATTEMPTED TO GET OUT OF BED AND PULLED IV OUT. CATHETER INTACT. PATIENT BACK IN BED AND LINENS CHANGED. BED ALARM ON, BODY ALARM ON, CALL LIGHT IN REACH
[2020-05-22 06:21] LABS: HEMATOCRIT 32.4 % (42.0-52.0); MEAN CELL VOLUME 99.4 fl (80.0-94.0); MEAN CORPUSCULAR HGB 35.3 pg (27.0-31.0); MEAN CORPUSCULAR HGB CONC 35.5 g/dl (33.0-37.0); MEAN PLATELET VOLUME 11.7 fl (9.6-12.3); PLATELET COUNT AUTOMATED 36 10*3/uL (130-400); RED BLOOD COUNT 3.26 10*6/uL (4.50-5.90); RED CELL DISTRI WIDTH 12.8 % (0-14.5); WHITE BLOOD COUNT 2.9 10*3/uL (4.8-10.8)
[2020-05-22 06:26] LABS: INTERNATIONAL NORM RATIO 1.2 (2.0-3.5)
[2020-05-22 06:32] LABS: ALBUMIN 2.6 gm/dl (3.1-4.5); ALKALINE PHOSPHATASE 181 U/L (45-117); BUN 4 mg/dl (7-24); CHLORIDE 107 mmol/L (98-107); CHOLESTEROL 141 mg/dL (<200); CREATININE 0.57 mg/dL (0.70-1.30); HDL CHOLESTEROL 61 mg/dl (40-60); LDL CHOLESTEROL 64 mg/dL (9-159); POTASSIUM 3.5 mmol/L (3.5-5.1); SGOT/AST 261 IU/L (3-35); SGPT/ALT 76 U/L (12-78); SODIUM 135 mmol/L (136-145); TOTAL PROTEIN 5.3 gm/dL (6.4-8.2); TRIGLYCERIDES 80 mg/dl (<150); VLDL CHOLESTEROL 16 mg/dL (6-40)
[2020-05-22 06:37] LABS: FREE T4 0.83 ng/dl (0.76-1.46)
[2020-05-22 07:33] LABS: VITAMIN D, 25-HYDROXY 50.9 ng/mL (30-100)
[2020-05-22 07:55] LABS: BASOPHILS 2 % (0-1); TOTAL CELLS COUNTED 100 #CELLS
[2020-05-22 07:56] LABS: BURR CELLS FEW; PLATELET SUFFICIENCY NORMAL (NORMAL); POLYCHROMASIA SLIGHT; SCHISTOCYTES FEW; TARGET CELLS FEW
[2020-05-22 08:00] VITALS: BP 147/94
--- NOTE | 2020-05-22 08:53 | NUR ---
PATIENT HAVING MODERATE TREMORS. ALERT AND ORIENTED AT THIS TIME. MEDICATED WITH ATIVAN 1MG IV PER PRN ORDER. WILL CONTINUE TO MONITOR.
--- NOTE | 2020-05-22 09:00 | NUR ---
Diagnostic Tech in to talk to patient. Patient states lives at home with friend. There are no steps in the home. Physician: none [facility]acy: [facility] Home health services: none Patient's level of ADLs: INDEPENDENT Patient has working utilities: all working DME: none Follow-up physician's appointment after d/c: will be made by hospitalist nurse director with doctor of patient's choice Does patient want to access PORTAL?: no Discharge plan discussed with patient, he states he lives at home, gets around fine and doesn't have any home needs, case management will follow. MICK BYRNE
--- NOTE | 2020-05-22 09:20 | NUR ---
PATIENT RESTING QUIETLY WITH EYES CLOSED. ATIVAN EFFECTIVE. WILL CONTINUE TO MONITOR.
--- NOTE | 2020-05-22 10:40 | NUR ---
Occupational Therapy evaluation completed on 4 with full eval to follow. Precautions include high fall risk,numbness BLEs,moderate complexity level 81496. Recommend OT per POC and home with home health and girlfriend assist. Thank you for this referral. Glenis Krishnan OTR/l
--- NOTE | 2020-05-22 10:40 | NUR ---
PHYSICAL THERAPY Physical Therapy evaluation completed on 4th floor with full evaluation to follow. Recommend physical therapy per plan of care and SNF upon discharge. Thank you for this referral. Renetta Ingram PT
[2020-05-22 12:00] VITALS: BP 126/77
--- NOTE | 2020-05-22 15:30 | NUR ---
BED ALARM TRIGGERED. WHEN RN ENTERED ROOM PATIENT STATED "SOMEONE SAID THE DECISION UNIT RN ARE OUTSIDE". "IM GOING TO SEE WHAT THEY WANT". RN ATTEMPTED TO REORIENT PATIENT. PATIENT VERY RESTLESS. MODERATE TREMORS NOTED. PATIENT ASSISTED UP TO BSC. GAIT VERY UNSTEADY. MEDICATED WITH ATIVAN 1MG IV PER PRN ORDER. WILL CONTINUE TO MONITOR.
[2020-05-22 16:00] VITALS: BP 129/99
--- NOTE | 2020-05-22 16:18 | NUR ---
PATIENT RESTING IN BED WITH EYES CLOSED. ATIVAN EFFECTIVE.
--- NOTE | 2020-05-22 19:00 | NUR ---
ASSUMED CARE FOR THIS PT AT THIS TIME. PT VERY RESTLESS AND ATTEMPTING TO GET OOB FREQUENTLY. BED ALARM ON AND BODY ALARM ON. REORIENTATION INEFFECTIVE. CALL LIGHT IN REACH.
--- NOTE | 2020-05-22 19:53 | NUR ---
PT C/O RLS, LUMBAR BACK PAIN 04/27, TREMORS NOTED, AGITATION NOTED. MEDICATED W/TYLENOL, ROBAXIN, VISTARIL, AND RESTORIL. WILL MONITOR FOR EFFECTIVENESS. CALL LIGHT IN REACH W/ALARMS ON.
[2020-05-22 20:00] VITALS: BP 136/95
--- NOTE | 2020-05-22 20:50 | NUR ---
PT RESTING QUIETLY IN BED. NO FURTHER S/S OF DISTRESS AND/OR ANXIETY NOTED. BED ALARM ON W/CALL LIGHT IN REACH.
[2020-05-23] VITALS: BP 124/97
--- NOTE | 2020-05-23 00:18 | NUR ---
PT ANXIOUS, ATTEMPTING TO GET OOB FREQUENTLY. MEDICATED W/IVP ATIVAN 1MG. PT ASSISTED INTO GERICHAIR AND PLACED AT NURSES STATION FOR STAFF TO MONITOR MORE CLOSELY D/T PT HAD A NEAR FALL.
--- NOTE | 2020-05-23 00:30 | NUR ---
DR. BALDWIN NOTIFIED OF PT'S CONTINUED C/O PINS AND NEEDLES AND RESTLESS LEGS. DR. BALDWIN TO ORDER ONE TIME DOSE OF REQUIP.
--- NOTE | 2020-05-23 01:00 | NUR ---
PRN IV ATIVAN INEFFECTIVE. PT VISUAL HALLUCINATING. PT CRAWLED OUT OF GERICHAIR AND WALKED INTO ROOM. PT CONTINUES TO ATTEMPT TO GET OOB UNASSISTED. PT STATES HE IS GOING TO GO RIDE HIS FOUR CUELLO. REORIENTATION AGITATES PT. FOOD/FLUIDS OFFERED AND REFUSED. TREMORS INCREASING. WILL MONITOR AND NOTIFY .
--- NOTE | 2020-05-23 01:20 | NUR ---
DR. BALDWIN NOTIFIED OF PT'S CONDITION. TO COME TO FLOOR TO SEE PT. DR. BALDWIN STATES IF THERE IS NO STAFF FOR A 1:1 THEN TRANSFER PT TO ICU. EMBOSSER OPERATOR, LEO NOTIFIED.
--- NOTE | 2020-05-23 01:40 | NUR ---
PT TRANSFERRED TO ICU. REPORT GIVEN TO BRIGHT MIDDLETON. ALL BELONGINGS SENT W/PT.
--- NOTE | 2020-05-23 01:50 | NUR ---
PATIENT RECEIVED AT THIS TIEM. PATIENT APPEARS CALM AT THIS TIME AND RECEPTIVE. TREMULOUS ACTIVITY NOTED. PATIENT STATE LEGS ARE RESTLESS. ATIVAN, ROBAXIN AND VISTARIL GIVEN AT THIS TIME.
--- NOTE | 2020-05-23 03:58 | NUR ---
PATIENT BECOMING INCREASINGLY RESTLESS AND ATTEMPTING TO GET OUT OF BED MULTIPLE TIMES. IV ATIVAN GIVEN. PATIENT CLEANED UP AND BED LINENS CHANGED DUE TO INCONTINENCE. NEW BRIEF APPLIED.
[2020-05-23 04:00] VITALS: BP 131/92
--- NOTE | 2020-05-23 05:36 | NUR ---
SOFT WRIST RESTRAINTS APPLIED AT THIS TIME. PATIENT REPEATEDLY TRYING TO REACH UNDER BED AND CLIMB OUT OF SIDE RAILS. PT TEACHING PROVIDED.
--- NOTE | 2020-05-23 05:52 | NUR ---
IV ATIVAN GIVEN DUE TO INCREASED AGITATION. PATIENT IN SOFT RESTRAINTS AND CONSTANTLY PULLING AT RESTRAINTS AND SWINGING LEGS OVER THE SIDERAILS. PATIENT CLEANED UP AND CHANGED.
[2020-05-23 05:59] LABS: BUN 4 mg/dl (7-24); CHLORIDE 100 mmol/L (98-107); CREATININE 0.58 mg/dL (0.70-1.30); POTASSIUM 3.4 mmol/L (3.5-5.1); SODIUM 134 mmol/L (136-145)
[2020-05-23 06:02] LABS: HEMATOCRIT 36.9 % (42.0-52.0); MEAN CELL VOLUME 99.2 fl (80.0-94.0); MEAN CORPUSCULAR HGB 35.2 pg (27.0-31.0); MEAN CORPUSCULAR HGB CONC 35.5 g/dl (33.0-37.0); PLATELET COUNT AUTOMATED 40 10*3/uL (130-400); RED BLOOD COUNT 3.72 10*6/uL (4.50-5.90); RED CELL DISTRI WIDTH 12.2 % (0-14.5); WHITE BLOOD COUNT 3.7 10*3/uL (4.8-10.8)
[2020-05-23 06:28] LABS: ATYPICAL LYMPHS 1 % (0-0); BASOPHILS 2 % (0-1); TOTAL CELLS COUNTED 100 #CELLS
[2020-05-23 06:29] LABS: BURR CELLS FEW; OVALOCYTES FEW; PLATELET SUFFICIENCY LOW (NORMAL); SCHISTOCYTES FEW
--- NOTE | 2020-05-23 07:19 | NUR ---
PT VERY AGITATED AND TRYING TO GET OUT OF BED. UNABLE TO REDIRECT OR REORIENT PT AT THIS TIME. PT HAS VISABLE TREMORING TO HANDS,ARMS. HR SINUS TACH. UP TO 140'S WITH HIS AGITATION. MEDICATED PT PER PRN ORDER WITH IV ATIVAN. WILL CONTINUE TO MONITOR PT.
--- NOTE | 2020-05-23 07:50 | NUR ---
PT NOT RESTLESS AND TREMORING SEEMS LESS. EARLIER ATIVAN SOMEWHAT EFFECTIVE.
--- NOTE | 2020-05-23 07:58 | NUR ---
OT NOTE Patient was evaluated on 05/22/2020 for occupational therapy. Patient was transferred to the ICCU on 05/23/2020. Due to patient's change in medical status, will need new orders when appropriate for an OT evaluation. Thank you. Shahnaz Cummings, OTR/L
[2020-05-23 08:00] VITALS: BP 135/91
--- NOTE | 2020-05-23 08:00 | NUR ---
PHYSICAL THERAPY Patient was evaluated on 05/22/2020 for physical therapy. Patient was transferred to the ICCU on 05/23/2020 with increased agitation. Due to patient's change in medical status, will need new orders when appropriate for an PT evaluation. Thank you. Renetta Ingram PT
--- NOTE | 2020-05-23 09:00 | NUR ---
case management did not see patient at this time due to confusional state, discharge plan undecided at this time, case management will follow for any needs
--- NOTE | 2020-05-23 09:54 | NUR ---
PT CALLING OUT FOR "MARKEL"..PT STATING HE IS AT HOME AND WANTS TO GO UPSTAIRS. PT TRYING TO GET OUT OF BED. UNABLE TO REORIENT OR REDIRECT PT AT THIS TIME. PT ALSO C/O BACK AND MUSCLE ACHES. MEDICATED PT PER PRN ORDER WITH IV ATIVAN AND PO VISTARIL FOR PT'S AGITATION AND ROBAXIN FOR PT'S C/O MUSCLE ACHES. ONE TIME KDUR GIVEN TO PT ALSO.
--- NOTE | 2020-05-23 10:30 | NUR ---
PT HAS HAD LITTLE RELEIF OF SYMPTOMS WITH EARLIER PRN MEDS.
--- NOTE | 2020-05-23 11:11 | NUR ---
TARUN TIVAN GIVEN TO PT FOR AGITATION AND TREMORS.
--- NOTE | 2020-05-23 11:40 | NUR ---
PT RESTING FOR SHORT PDS OF TIME ONLY. WILL CONTINUE TO MONITOR PT.
--- NOTE | 2020-05-23 11:40 | NUR ---
NO RESULTS FROM EARLIER ATIVAN. PT CONTINUES TO TRY AND GET OUT OF BED. PT CONTINUES TO HALLUCINATE AND CALL OUT FOR HIS GIRLFRIEND MARKEL. PT HAS BEEN INCONT. OF GREENISH-YELLOW LIQUID BM MULTIPLE TIMES. PT CLEANSED AND LINENS CHANGED.
[2020-05-23 12:00] VITALS: BP 132/98
--- NOTE | 2020-05-23 12:09 | NUR ---
IM GEODON AND IV FLUID BOLUS STARTED PER ORDER.
--- NOTE | 2020-05-23 12:30 | NUR ---
PT REMAINS AGITATED AFTER IM GEODON. IV ATIVAN GIVEN PER ORDER.
--- NOTE | 2020-05-23 13:07 | NUR ---
PT CONTINUES TO BE AGITATED AND CONTINUES TO HALLUCINATE AFTER IM GEODON. MEDICATED PT PER 1X ORDER OF ATIVAN 2MG. DR HARDY IN TO SEE PT. PDATED HER ON PT'S CONDITION. NEW ORDERS RECEIVED.
--- NOTE | 2020-05-23 13:22 | NUR ---
IV ATIVAN GIVEN FOR PT'S CONT. AGITATION.
--- NOTE | 2020-05-23 15:49 | NUR ---
MEDICATED PT PER PRN ORDER WITH IV ATIVAN 1MG FOR CONTINUED AGITATION AND WITHDRAWL SYMTPOMS.
[2020-05-23 16:00] VITALS: BP 134/108
--- NOTE | 2020-05-23 16:37 | NUR ---
PT RESTING QUIETLY. EARLIER ATIVAN EFFECTIVE.
--- NOTE | 2020-05-23 17:05 | NUR ---
PT INCONT. OF STOOL. PT CLEANSED AND LINENS CHANGED. IV ATIVAN GIVEN TO PT FOR HIS CONTINUED AGITATION.
--- NOTE | 2020-05-23 17:21 | NUR ---
MEDICATED PT PER PRN ORDER WITH ATIVAN FOR PT'S CONTINED AGITATION.
--- NOTE | 2020-05-23 17:36 | NUR ---
PT RESTING. ATIVAN EFFECTIVE FOR NOW.
--- NOTE | 2020-05-23 18:02 | NUR ---
PT RESTING. EARLIER ATIVAN EFFECTIVE.
--- NOTE | 2020-05-23 18:41 | NUR ---
MEDICATED PT PER PRN ORDER WITH ATIVAN IV FOR PT'S AGITATION.
--- NOTE | 2020-05-23 19:10 | NUR ---
PT CONTINUES TO BE VERY RESTLES. PT DID EAT ABOUT 20% OF DINNER WITH ASSISTANCE FROM STAFF.
--- NOTE | 2020-05-23 19:11 | NUR ---
MEDICATED PT PER PRN ORDER WITH ATIVAN.
--- NOTE | 2020-05-23 19:31 | NUR ---
PT RESTING. EARLIER ATIVAN EFFECTIVE.
--- NOTE | 2020-05-23 19:57 | NUR ---
PATIENT MEDICATED WITH ATIVAN IV PER DRS ORDERS FOR INCREASED AGITATION AND TREMORS. PATIENT PULLING AT WRIST RESTRAINTS AND THRASHING LEGS AROUND IN BED. PATIENT ALSO DEMONSTRATES STRONG BILATERAL HAND TREMOR WHEN TOLD TO HOLD HANDS OUT RN WILL CONTINUE TO MONITOR
[2020-05-23 20:00] VITALS: BP 132/97
--- NOTE | 2020-05-23 20:49 | NUR ---
PATIENT CONTINUES TO YELL OUT OCCASIONALLY SINCE EARLIER ATIVAN, MILD TREMOR NOTED TO BILATERAL HANDS, PATIENT IS STILL CONFUSED, ONLY ORIENTED TO HIMSELF, SPEECH IS SLURRED AND CANNOT FOLLOW CONVERSATION AND ONLY FOLLOWS VERY SIMPLE COMMANDS. RN WILL CONTINUE TO MONITOR
--- NOTE | 2020-05-23 21:10 | NUR ---
IV ATIVAN GIVEN FOR AGITATION. WILL MONITOR
--- NOTE | 2020-05-23 21:45 | NUR ---
IV ATIVAN GIVEN FOR TREMORS AND AGITATION. PATIENT CONTINUES TO YELL OUT AND KICK LEGS OVER SIDE RAIL. WILL MONITOR
--- NOTE | 2020-05-23 22:37 | NUR ---
PATIENT CONTINUES TO YELL OUT SWEARING AND ATTEMPTING TO GET OUT OF BED, MILD TREMOR TO HANDS NOTED. WILL CONTINUE TO MONITOR
--- NOTE | 2020-05-23 22:52 | NUR ---
PATIENT GIVEN IV ATIVAN PER DRS ORDERS. PATIENT CHANGED FOR LARGE AMOUNT OF URINARY INCONTINENCE. PATIENT CONTINUES TO YELL OUT AND IS VERY RESTLESS IN BED. RN WILL CONTINUE TO MONITOR
--- NOTE | 2020-05-23 23:33 | NUR ---
PATIENT NOW HAVING AUDITORY AND VISUAL HALLUCINATIONS, MEDICATED WITH IV ATIVAN
[2020-05-24] VITALS: BP 150/98
--- NOTE | 2020-05-24 00:24 | NUR ---
PATIENT MEDICATED WITH ATIVAN IV, PATIENT KICKED THE AIR AND YELLING AT SOMEONE WHO IS NOT THERE. RN WILL CONTINUE TO MONITOR
--- NOTE | 2020-05-24 02:22 | NUR ---
IV ATIVAN GIVEN FOR AGITATION AND TREMORS. WILL MONITOR
--- NOTE | 2020-05-24 03:29 | NUR ---
PATIENT YELLING OUT, SWEARING LOUDLY, DISTURBING OTHER PATIENTS ON UNIT. KICKING SIDERAILS AND THRASHING AROUND IN BED, IV ATIVAN GIVEN PER DRS ORDERS. RN WILL CONTINUE TO MONITOR
[2020-05-24 04:00] VITALS: BP 140/98
--- NOTE | 2020-05-24 04:30 | NUR ---
SKIN TEAR FOUND ON LEFT WRIST/FOREARM AREA. BLEEDING CONTROLLED. WOUND CARE NOTIFIED, PHOTOGRAPH TAKEN, MEASURED PER POLICY.
--- NOTE | 2020-05-24 04:43 | NUR ---
DR ESTEVES NOTIFIED OF SKIN TEAR ON LEFT FOREARM
--- NOTE | 2020-05-24 05:38 | NUR ---
PATIENT BATHED AT THIS TIME, TOLERATED WELL, BILATERAL WRIST RESTRAINTS REMOVED TO ASSESS CIRCULATION AND ALLOW PATIENT TO MOVE LIMBS FREELY. PATIENT IMMEDIATELY BEGAN TEARING OFF ECG PATCHES AND PULLING AT IV LINES. MANY REORIENTATION ATTMEPTS WERE MADE, ALTHOUGH NONE WERE SUCCESSFUL. BILATERAL WRIST RESTRAINTS REAPPLIED TO PREVENT SELF HARM AND PREVENT HARM TO STAFF. RN WILL CONTINUE TO MONITOR
--- NOTE | 2020-05-24 05:50 | NUR ---
PATIENT RESTING QUIETLY WITH EYES CLOSED AT THIS TIME. NO S/S DISTRESS. HRR-107 PER CM, BILATERAL WRIST RESTRAINTS ON AND INTACT. RESPIRATIONS ARE EASY AND UNLABORED. BED ALRAM ON. CALL LIGHT WITHIN REACH. RN WILL CONTINUE TO MONITOR
[2020-05-24 05:57] LABS: CHLORIDE 106 mmol/L (98-107); POTASSIUM 3.4 mmol/L (3.5-5.1); SODIUM 138 mmol/L (136-145)
[2020-05-24 06:03] LABS: ALBUMIN 2.9 gm/dl (3.1-4.5); ALKALINE PHOSPHATASE 189 U/L (45-117); BUN 3 mg/dl (7-24); SGOT/AST 145 IU/L (3-35); SGPT/ALT 75 U/L (12-78); TOTAL PROTEIN 5.8 gm/dL (6.4-8.2)
[2020-05-24 06:25] LABS: MEAN CELL VOLUME 99.7 fl (80.0-94.0); MEAN CORPUSCULAR HGB 35.3 pg (27.0-31.0); MEAN CORPUSCULAR HGB CONC 35.4 g/dl (33.0-37.0); PLATELET COUNT AUTOMATED 44 10*3/uL (130-400); RED BLOOD COUNT 3.71 10*6/uL (4.50-5.90); RED CELL DISTRI WIDTH 12.3 % (0-14.5)
[2020-05-24 07:08] LABS: ACANTHOCYTES FEW; ATYPICAL LYMPHS 1 % (0-0); BASOPHILS 1 % (0-1); PLATELET SUFFICIENCY LOW (NORMAL); POLYCHROMASIA SLIGHT; TOTAL CELLS COUNTED 100 #CELLS
[2020-05-24 07:09] LABS: BURR CELLS FEW; SCHISTOCYTES FEW
--- NOTE | 2020-05-24 07:12 | NUR ---
Shift chart check completed.
--- NOTE | 2020-05-24 07:48 | NUR ---
PHYSICAL THERAPY Screen received pt was seen and evaluated on regular medical floor and was on caseload. Pt was then transferred to [facility]U on 05/23 due to aggitation and change in mental status. Due to change in medical status and transfer to [facility]U pt will need new PT order when stable, thank you Renetta Ingram PT
[2020-05-24 08:00] VITALS: BP 136/84
--- NOTE | 2020-05-24 08:41 | NUR ---
MEDICATED WITH ATIVAN IV AND ZOFRAN FOR INCREASING AGGITATION, HALLUCINATIONS, AND STARTING TO SWING AT STAFF. WILL ATTEMPT PO MEDS AFTER PATIENT CALMS DOWN. TREMORS VISIBLE AT REST
--- NOTE | 2020-05-24 08:59 | NUR ---
MEDICATED WITH BENTYL, ZOFRAN, BENADRYL, & ROBAXIN FOR INCREASED AGGITATION, THRASHING, HALLUCINATING
--- NOTE | 2020-05-24 09:36 | NUR ---
ATIVAN IV GIVEN FOR CONTINUED OULLING AT LINES - TALKING & ARGUING WITH PEOPLE THAT ARE NOT THERE - SEEING THINGS THAT ARE NOT THERE - ABLE TO GIVE HIS NAME AND SLOWLY HIS BIRTHDAY
--- NOTE | 2020-05-24 10:09 | NUR ---
ATIVAN GIVEN AFTER SEEN BY DR HARDY FOR CONTINUED AGGITATION
--- NOTE | 2020-05-24 10:32 | NUR ---
IX PHENOBARB GIVEN PER ORDERS FOR WITHDRAWL AND MINIMAL EFFECT. IV SITE MAINTAINS GOOD BLOOD RETURN
--- NOTE | 2020-05-24 11:08 | NUR ---
PATIENT STILL MOVING ABOUT BUT LESS FREQUENTLY THAN PRIOR TO PHENOBARBITOL. HR LOW 100'S
[2020-05-24 12:00] VITALS: BP 134/98
--- NOTE | 2020-05-24 12:45 | NUR ---
PATIENT MOVING ABOUT MORE OVER LAST 30 MINUTES BUT STILL BETTER THAN EARLIER.
--- NOTE | 2020-05-24 14:15 | NUR ---
Nursing screen received and chart review completed. Patient admitted for alcohol intoxication. Patient was evaluated 05/22/20 for Occupational Therapy and then transferred to [facility]U. If patient should need OT then refer for further assessment. Thank you. Glenis Krishnan OTR/L
--- NOTE | 2020-05-24 14:53 | NUR ---
Incontinent large amt urine. Kristen care given and brief changed.
[2020-05-24 16:00] VITALS: BP 130/102
--- NOTE | 2020-05-24 17:37 | NUR ---
Took po meds w/ applesauce. incontinent urine. exo cath placed. Restless, medicated.
[2020-05-24 20:00] VITALS: BP 131/97
--- NOTE | 2020-05-24 20:37 | NUR ---
PATIENT WILL NOT SWALLOW ANY PILLS DOCTOR ESTEVES TO THE FLOOR AND INFORMED OF THIS. I ASKED HER TO SWITCH TO IV. ORDER RECIEVED AT THIS TIME.
[2020-05-25] VITALS: BP 124/90
--- NOTE | 2020-05-25 02:56 | NUR ---
PATIENT RESTING WITH EYES CLOSED. PATIENT SHOWING NO SIGNS OF ANXIETY AT THIS TIME.
[2020-05-25 04:00] VITALS: BP 113/88
--- NOTE | 2020-05-25 04:21 | NUR ---
PATIENT VERY AGITATED THIS MORNING YELLING OUT PROFANITY AT OTHER STAFF AND NURSES . PATIENT WAS GIVEN ATIVAN AT THIS TIME. PATIENT WAS ALSO OFFERED SOME MONIQUE MAXIMO BUT HE SAID NO HE ONLY WANTED WHISKEY. I EXPLAINED TO HIM THAT HE WAS IN THE HOSPITAL HE JUST STARED AT ME.
--- NOTE | 2020-05-25 05:08 | NUR ---
PATIENT TRYING TO CLIMB OUT OF BED. AND PULLING AT RESTRAINTS . PRN ATIVAN GIVEN.
[2020-05-25 06:08] LABS: BASO # 0.1 10*3/uL (0.0-0.1); BASO % 1.4 % (0.0-1.0); BUN 3 mg/dl (7-24); CHLORIDE 105 mmol/L (98-107); CREATININE 0.57 mg/dL (0.70-1.30); EOS # 0.1 10*3/uL (0.0-0.4); EOS % 2.8 % (1.0-4.0); HEMATOCRIT 36.2 % (42.0-52.0); LYMPH # 0.8 10*3/uL (1.3-4.4); LYMPH % 18.6 % (27.0-41.0); MEAN CELL VOLUME 100.8 fl (80.0-94.0); MEAN CORPUSCULAR HGB 35.4 pg (27.0-31.0); MEAN CORPUSCULAR HGB CONC 35.1 g/dl (33.0-37.0); MEAN PLATELET VOLUME 11.7 fl (9.6-12.3); MONO # 0.6 10*3/uL (0.1-1.0); MONO % 13.5 % (3.0-9.0); NEUT # 2.8 10*3/uL (2.3-7.9); NEUT % 63.7 % (47.0-73.0); PLATELET COUNT AUTOMATED 54 10*3/uL (130-400); POTASSIUM 3.5 mmol/L (3.5-5.1); RED BLOOD COUNT 3.59 10*6/uL (4.50-5.90); RED CELL DISTRI WIDTH 12.4 % (0-14.5); SODIUM 135 mmol/L (136-145); WHITE BLOOD COUNT 4.3 10*3/uL (4.8-10.8)
--- NOTE | 2020-05-25 06:29 | NUR ---
PATIENT JUST DRANK A WHOLE ORANGE JUICE THIS MORNING.WILL CONTINUE TO ENCOURAGE TO EAT AND DRINK.
[2020-05-25 08:00] VITALS: BP 123/88
--- NOTE | 2020-05-25 09:30 | NUR ---
PT FED BREAKFAST BECAUSE HE WAS UNABLE TO HOLD THE FOOD WITHOUT DROPPING IT. HE ATE 50% OF BREAKFAST. WILL CONITNUE TO MONITOR PT.
--- NOTE | 2020-05-25 09:33 | NUR ---
PT GETTING AGITATED. PT TRYING TO PULL AT [place] CATH. AND TRYING TO GET OUT OF BED. MEDICATED PT PER PRN ORDERS WITH ATIVAN AND BENADRYL.
--- NOTE | 2020-05-25 10:00 | NUR ---
PT RESTING. EARLIER PRN ORDERS EFFECTIVE.
--- NOTE | 2020-05-25 11:39 | NUR ---
MEDICATED PT PER PRN ORDER WITH VISTARIL FOR PT'S ANXIETY AND ROBAXIN FOR PT'S C/O BACK/MUSCLE SPASMS.
[2020-05-25 12:00] VITALS: BP 125/98
--- NOTE | 2020-05-25 12:56 | NUR ---
PT IS MORE AGITATED AND TREMORS NOTED IN HIS HANDS. MEDICATE DPT PER PRN ORDER WITH ATIVAN. EARLIER VISTARIL NOT EFFECTIVE. ROBAXIN DID HELP FOR MUSCLE ACHES.
--- NOTE | 2020-05-25 15:02 | NUR ---
MEDICATED PT PER PRN ORDER WITH ATIVAN FOR PT'S INCREASED AGITATION AND HAND TREMORS.
--- NOTE | 2020-05-25 15:30 | NUR ---
PT RESTING. EARLIER ATIVAN EFFECTIVE.
[2020-05-25 16:00] VITALS: BP 136/102
--- NOTE | 2020-05-25 18:00 | NUR ---
PT RESTING QUIETLY.
--- NOTE | 2020-05-25 19:07 | NUR ---
CHART CHECK COMPLETE.
[2020-05-25 20:00] VITALS: BP 138/99
[2020-05-26] VITALS (7 sets, daily range): BP systolic 105–136; BP diastolic 48–93
--- NOTE | 2020-05-26 02:08 | NUR ---
PT YELLS, SWINGS, AND SWEARS AT US WE BATHE HIM AND CHANGE HIS BED LINENS. HE ALSO WAS INCONTINENT OF LG AMT OF LIQUID STOOL AT THIS TIME. PT POSITIONED TO LT SIDE, HOB ELEVATED. APPEARS COMFORTABLE.
--- NOTE | 2020-05-26 02:45 | NUR ---
PT SITTING UP, PULLING AT SOFT WRIST RESTRAINTS. TRYING TO GET OOB. COMFORT MEASURES NOT EFFECTIVE AND PT FIGHTS AGAINST IT. MEDICATED WITH BENADRYL AND ATIVAN IV.
--- NOTE | 2020-05-26 03:00 | NUR ---
ATIVAN AND BENADRYL EFFECTIVE. PT DOZING, BODY RELAXED. HR 80'S AND RR LOW 20'S.
--- NOTE | 2020-05-26 04:00 | NUR ---
MARGARET CARE DONE FOR INCONTINENCE OF LG AMT LOOSE BROWN FOUL SMELLING STOOL.
--- NOTE | 2020-05-26 04:25 | NUR ---
PT AGAIN, AGITATED, CALLING OUT. ATTEMPTS TO INCREASE COMFORT UNSUCCESSFUL. PT INCONTINENT FOR VERY LG AMT ORANGE COLORED FOUL SMELLING LIQUID STOOL. MARGARET CARE DONE.
[2020-05-26 06:10] LABS: BUN 4 mg/dl (7-24); CHLORIDE 106 mmol/L (98-107); CREATININE 0.61 mg/dL (0.70-1.30); POTASSIUM 3.6 mmol/L (3.5-5.1); SODIUM 137 mmol/L (136-145)
--- NOTE | 2020-05-26 06:20 | NUR ---
ATIVAN GIVEN AT 0520 FOR RESTLESSNESS/AGITATION EFFECTIVE. PT DOZING.
[2020-05-26 06:42] LABS: BASO % 0.2 % (0.0-1.0); HEMATOCRIT 36.6 % (42.0-52.0); LYMPH # 0.6 10*3/uL (1.3-4.4); MEAN CELL VOLUME 101.7 fl (80.0-94.0); MEAN CORPUSCULAR HGB 35.8 pg (27.0-31.0); MEAN CORPUSCULAR HGB CONC 35.2 g/dl (33.0-37.0); MEAN PLATELET VOLUME 12.1 fl (9.6-12.3); MONO # 1.2 10*3/uL (0.1-1.0); MONO % 11.7 % (3.0-9.0); NEUT # 8.5 10*3/uL (2.3-7.9); NEUT % 81.7 % (47.0-73.0); PLATELET COUNT AUTOMATED 68 10*3/uL (130-400); WHITE BLOOD COUNT 10.4 10*3/uL (4.8-10.8)
--- NOTE | 2020-05-26 08:41 | NUR ---
MEDICATED WITH VISTARIL, ROBAXIN & BENTYL FOR RESTLESSNESS & LOOSE STOOLS. PO PILLS TAKEN..
--- NOTE | 2020-05-26 09:50 | NUR ---
CALMER SINCE MEDICATED. MEDS EFFECITIVE
--- NOTE | 2020-05-26 11:22 | NUR ---
ATIVAN GIVEN FOR ANXIETY.. IVF INFUSING VIA ASYMPTOMATIC SITE WITH GOOD BLOOD RETURN
--- NOTE | 2020-05-26 18:18 | NUR ---
Benadryl given for increasing restlessness
--- NOTE | 2020-05-26 18:51 | NUR ---
pulling at liness less frequently
--- NOTE | 2020-05-26 23:55 | NUR ---
PATIENT GIVEN PRN ATIVAN FOR AGITATION AND ANXIETY. PATIENT YELLING AND TRYING TO HIT STAFF WE TRIED TO CLEAN HIM UP AND CHANGE HIS BED AFTER HE PULLED [place] CATH OFF.
[2020-05-27] VITALS: BP 132/96
--- NOTE | 2020-05-27 01:57 | NUR ---
PATIENT RESTING WITH EYES CLOSED AT THIS TIME. PATIENT SEEMS TO BE CALM AND ATIVAN IS EFFECTIVE AT THIS TIME.
[2020-05-27 04:00] VITALS: BP 149/83
[2020-05-27 06:22] LABS: BASO % 0.4 % (0.0-1.0); EOS # 0.1 10*3/uL (0.0-0.4); EOS % 1.5 % (1.0-4.0); HEMATOCRIT 32.9 % (42.0-52.0); LYMPH # 0.9 10*3/uL (1.3-4.4); LYMPH % 12.9 % (27.0-41.0); MEAN CORPUSCULAR HGB 35.4 pg (27.0-31.0); MEAN CORPUSCULAR HGB CONC 35.9 g/dl (33.0-37.0); MEAN PLATELET VOLUME 10.7 fl (9.6-12.3); MONO % 13.3 % (3.0-9.0); NEUT # 5.2 10*3/uL (2.3-7.9); NEUT % 71.3 % (47.0-73.0); PLATELET COUNT AUTOMATED 82 10*3/uL (130-400); RED BLOOD COUNT 3.33 10*6/uL (4.50-5.90); RED CELL DISTRI WIDTH 12.5 % (0-14.5); WHITE BLOOD COUNT 7.2 10*3/uL (4.8-10.8)
[2020-05-27 06:45] LABS: MEAN CELL VOLUME 98.8 fl (80.0-94.0)
[2020-05-27 07:11] LABS: BUN 4 mg/dl (7-24); CHLORIDE 104 mmol/L (98-107); CREATININE 0.37 mg/dL (0.70-1.30); POTASSIUM 2.9 mmol/L (3.5-5.1); SODIUM 135 mmol/L (136-145)
--- NOTE | 2020-05-27 07:46 | NUR ---
1 MG ATIVAN +ZOFRAN FOR AGITATION AND "BURPING"
[2020-05-27 08:00] VITALS: BP 127/96
--- NOTE | 2020-05-27 08:30 | NUR ---
ATIVAN AND ZOFRAN MODERATELY EFFECTIVE
--- NOTE | 2020-05-27 10:30 | NUR ---
ATIVAN SOMEWHAT EFFECTIVE,
--- NOTE | 2020-05-27 10:41 | NUR ---
1 MG IV ATIVAN FOR AGGIATATION
--- NOTE | 2020-05-27 10:41 | NUR ---
BENDRYL FOR RESTLESSNESS
[2020-05-27 12:00] VITALS: BP 130/91
--- NOTE | 2020-05-27 13:52 | NUR ---
IV ATIVAN FOR AGITATION
[2020-05-27 16:14] VITALS: BP 112/76
--- NOTE | 2020-05-27 17:32 | NUR ---
CALM, UNLESS DISTURBED, THEN HE HITS, TRIES TO BITE DURING ANY CARE ESPECISLLY TURNING, REMAINS IN SOFT WRIST RESTRAINTS
[2020-05-27 20:00] VITALS: BP 138/104
--- NOTE | 2020-05-27 20:12 | NUR ---
PATIENT AGITATED YELLING SWEAR WORDS AND PULLING AT RESTRAINTS PATIENT GIVEN ATIVAN AND BENEDRYL PER ORDER.
--- NOTE | 2020-05-27 21:06 | NUR ---
PATIENT REFUSING REQUIP WHEN I ATTEMPTED TO GIVE HIM A DRINK HE BLEW IN THE STRAW AND BLEW POP EVERYWHERE. PATIENT WOULD NOT OPEN HIS MOUTH AND TAKE ANY PILLS.
[2020-05-28] VITALS: BP 144/96
[2020-05-28 04:00] VITALS: BP 146/107
[2020-05-28 05:28] LABS: ALBUMIN 2.3 gm/dl (3.1-4.5); ALKALINE PHOSPHATASE 129 U/L (45-117); BUN 3 mg/dl (7-24); CHLORIDE 107 mmol/L (98-107); CREATININE 0.35 mg/dL (0.70-1.30); POTASSIUM 3.6 mmol/L (3.5-5.1); SGOT/AST 88 IU/L (3-35); SGPT/ALT 65 U/L (12-78); SODIUM 136 mmol/L (136-145); TOTAL PROTEIN 4.9 gm/dL (6.4-8.2)
--- NOTE | 2020-05-28 06:11 | NUR ---
PATIENT TRYING TO GET OUT OF BED WHEN I ASKED HIM WHERE HE WAS TRYING TO GO HE SAID HE HAD TO PEE. PATIENT WAS ABLE TO USE THE URINAL THIS MORNING.
[2020-05-28 06:16] LABS: BASO % 0.5 % (0.0-1.0); EOS # 0.1 10*3/uL (0.0-0.4); EOS % 1.9 % (1.0-4.0); HEMATOCRIT 35.5 % (42.0-52.0); LYMPH # 0.9 10*3/uL (1.3-4.4); LYMPH % 13.6 % (27.0-41.0); MEAN CELL VOLUME 97.5 fl (80.0-94.0); MEAN CORPUSCULAR HGB 35.2 pg (27.0-31.0); MEAN CORPUSCULAR HGB CONC 36.1 g/dl (33.0-37.0); MEAN PLATELET VOLUME 11.9 fl (9.6-12.3); MONO # 1.1 10*3/uL (0.1-1.0); MONO % 17.5 % (3.0-9.0); NEUT # 4.2 10*3/uL (2.3-7.9); PLATELET COUNT AUTOMATED 106 10*3/uL (130-400); RED BLOOD COUNT 3.64 10*6/uL (4.50-5.90); RED CELL DISTRI WIDTH 12.2 % (0-14.5); WHITE BLOOD COUNT 6.3 10*3/uL (4.8-10.8)
[2020-05-28 08:00] VITALS: BP 113/89
--- NOTE | 2020-05-28 08:36 | NUR ---
SOMEWHAT LESS AGITATED, BUT STILL CONFUSED AND DISORIENTED BRIEF CHANGED, MARGARET CARE DONE REMAINS [place] RESTRAINED TO PREVENT PT FROM HITTIONG STAFF AND PULLING OUT IV
--- NOTE | 2020-05-28 10:47 | NUR ---
ATIVAN/BENDRYL FOR AGITATION RETO DT'S
--- NOTE | 2020-05-28 11:12 | NUR ---
ATIVAN AND BENDRYL ARE EFFECTIVE
[2020-05-28 12:00] VITALS: BP 138/94
--- NOTE | 2020-05-28 12:59 | NUR ---
ATIVAN FOR AGITATION
--- NOTE | 2020-05-28 15:24 | NUR ---
ATIVAN FOR AGITATION
[2020-05-28 16:00] VITALS: BP 146/82
--- NOTE | 2020-05-28 18:42 | NUR ---
PT HITTING AND TRYING TO BITE WITH TURNING FOR BRIEF CHANGE, 3 STAFF MEMBERS AT BEDSIDE, DARLENE AND ANNIE DILLON
--- NOTE | 2020-05-28 18:48 | NUR ---
ATIVAN/BENDRYL HAVE BEEN EFFECTIVE, PT CALM AND DOZING
--- NOTE | 2020-05-28 19:26 | NUR ---
CHART CHECK COMPLETE.
--- NOTE | 2020-05-28 19:45 | NUR ---
ROBAXIN FOR MUSCLE CRAMPING.
[2020-05-28 20:00] VITALS: BP 145/100
--- NOTE | 2020-05-28 20:03 | NUR ---
WATCHING TV. NO DISTRESS OR COMPLAINTS.
--- NOTE | 2020-05-28 22:31 | NUR ---
PT INCONTINENT OF URINE AND STOOL. COMPLETE BATH AND BED LINEN CHANGE DONE. PT UNCOOPERATIVE DURING CARE.
--- NOTE | 2020-05-28 22:57 | NUR ---
ROBAXIN AND BATH/BED LINEN CHANGE EFFECTIVE... PT APPEARS TO BE SLEEPING WITH RELAXED BODY.
[2020-05-29] VITALS: BP 136/86
--- NOTE | 2020-05-29 01:35 | NUR ---
PT RESTLESS, SQUIRMING. BRIEF CHECKED AND IS DRY. MEDICATED WITH ROBAXIN IN APPLESAUCE.
--- NOTE | 2020-05-29 03:09 | NUR ---
ROBAXIN WAS EFFECTIVE UNTIL PT STARTED SQUIRMING. MARGARET AREA CHECKED AND PT WAS INCONTINENT OF URINE. MARGARET CARE DONE AND THEN PT RETURNED TO SLEEP.
[2020-05-29 04:00] VITALS: BP 143/107
--- NOTE | 2020-05-29 04:05 | NUR ---
BENADRYL AND ATIVAN GIVEN AT 0335 FOR RESTLESSNESS AND AGITATION WAS EFFECTIVE. PT SLEEPING, BODY RELAXED.
--- NOTE | 2020-05-29 06:19 | NUR ---
MARGARET CARE DONE FOR INCONTINENCE OF URINE. PT REPOSITIONED.
[2020-05-29 06:38] LABS: ALBUMIN 2.3 gm/dl (3.1-4.5); ALKALINE PHOSPHATASE 136 U/L (45-117); BUN 2 mg/dl (7-24); CHLORIDE 105 mmol/L (98-107); CREATININE 0.43 mg/dL (0.70-1.30); POTASSIUM 3.6 mmol/L (3.5-5.1); SGOT/AST 69 IU/L (3-35); SGPT/ALT 62 U/L (12-78); SODIUM 137 mmol/L (136-145)
[2020-05-29 06:41] LABS: HEMATOCRIT 34.1 % (42.0-52.0); MEAN CORPUSCULAR HGB 35.7 pg (27.0-31.0); MEAN CORPUSCULAR HGB CONC 35.5 g/dl (33.0-37.0); MEAN PLATELET VOLUME 11.2 fl (9.6-12.3); RED BLOOD COUNT 3.39 10*6/uL (4.50-5.90); RED CELL DISTRI WIDTH 12.5 % (0-14.5); WHITE BLOOD COUNT 5.8 10*3/uL (4.8-10.8)
[2020-05-29 06:43] LABS: MEAN CELL VOLUME 100.6 fl (80.0-94.0); PLATELET COUNT AUTOMATED 159 10*3/uL (130-400)
[2020-05-29 07:02] LABS: TOTAL CELLS COUNTED 100 #CELLS
[2020-05-29 07:03] LABS: ACANTHOCYTES FEW; PLATELET SUFFICIENCY NORMAL (NORMAL); SCHISTOCYTES FEW; TARGET CELLS FEW
--- NOTE | 2020-05-29 07:29 | NUR ---
ATIVAN FOR AGITATION
[2020-05-29 08:00] VITALS: BP 142/97
--- NOTE | 2020-05-29 08:56 | NUR ---
ROBAXIN/VISTARIL TO HELP WITH DT'S
--- NOTE | 2020-05-29 09:45 | NUR ---
ROBAXIN/VISTARIL EFFECTIVE
--- NOTE | 2020-05-29 11:30 | NUR ---
ATIVAN AND BENDRYL FOR CONTINUED AGITATION
--- NOTE | 2020-05-29 11:45 | NUR ---
ATIVAN AND BENDRYL ARE EFFECTIVE
[2020-05-29 12:00] VITALS: BP 115/62
--- NOTE | 2020-05-29 14:27 | NUR ---
IV ATIVAN FOR AGITATION
[2020-05-29 16:00] VITALS: BP 131/77
--- NOTE | 2020-05-29 18:42 | NUR ---
ATIVAN FOR AGITATION
[2020-05-29 19:51] VITALS: BP 124/96
--- NOTE | 2020-05-29 20:06 | NUR ---
REMAINS RESTLESS. PULSE OX 97% ON RA. IV FLUDIS CONT. NO DISTRESS NOTED. WRIST RESTRAINTS INTACT BILATERALLY. CIRCULATION ADEQUATE. NO DISTRESS NOTED.
--- NOTE | 2020-05-29 20:14 | NUR ---
ESSENCE ACE FOR NAUSEA. WILL MONITOR.
--- NOTE | 2020-05-29 21:14 | NUR ---
EARLIER BENADRYL EFFECTIVE.
--- NOTE | 2020-05-29 22:06 | NUR ---
2129 INCONTINENT OF LARGE AMOUNT URINE. MARGARET CARE DONE AND ADULT DIAPER CHANGED.
--- NOTE | 2020-05-29 22:50 | NUR ---
2250 ATIVAN 1MG IV FOR AGITATION AND RESLESSNSS. WILL MONITOR.
--- NOTE | 2020-05-29 23:50 | NUR ---
EARLIER ATIVAN EFFECTIVE. RESTING IN BED WITH EYES CLOSED. APPEARS TO BE SLEEPING.
[2020-05-30] VITALS: BP 130/96
--- NOTE | 2020-05-30 00:45 | NUR ---
COMPLETE BED BATH GIVEN AND LINENS CHANGED
[2020-05-30 04:00] VITALS: BP 143/90
--- NOTE | 2020-05-30 04:10 | NUR ---
0330 INCONTINENT OF LARGE AMOUNT URINE. MARGARET CARE DONE AND LINENS CHANGED.
--- NOTE | 2020-05-30 05:05 | NUR ---
BENDRYL 25MG IV.
[2020-05-30 05:40] LABS: ALBUMIN 2.2 gm/dl (3.1-4.5); BUN 2 mg/dl (7-24); CHLORIDE 104 mmol/L (98-107); POTASSIUM 3.1 mmol/L (3.5-5.1); SGOT/AST 59 IU/L (3-35); SGPT/ALT 59 U/L (12-78); SODIUM 138 mmol/L (136-145)
[2020-05-30 05:42] LABS: ALKALINE PHOSPHATASE 125 U/L (45-117); TOTAL PROTEIN 4.7 gm/dL (6.4-8.2)
--- NOTE | 2020-05-30 06:05 | NUR ---
EARLIER BENADRYL EFFECTIVE. IV FLUIDS CONT. WRIST RESTRAINTS INTACT BILATERALLY. NO DISTRESS NOTED. CONDITION GUARDED.
[2020-05-30 06:14] LABS: HEMATOCRIT 33.4 % (42.0-52.0); MEAN CELL VOLUME 98.5 fl (80.0-94.0); MEAN CORPUSCULAR HGB 34.8 pg (27.0-31.0); MEAN CORPUSCULAR HGB CONC 35.3 g/dl (33.0-37.0); MEAN PLATELET VOLUME 11.4 fl (9.6-12.3); PLATELET COUNT AUTOMATED 197 10*3/uL (130-400); RED BLOOD COUNT 3.39 10*6/uL (4.50-5.90); RED CELL DISTRI WIDTH 12.4 % (0-14.5); WHITE BLOOD COUNT 4.6 10*3/uL (4.8-10.8)
[2020-05-30 06:51] LABS: ATYPICAL LYMPHS 1 % (0-0); BASOPHILS 1 % (0-1); BURR CELLS FEW; PLATELET SUFFICIENCY NORMAL (NORMAL); TOTAL CELLS COUNTED 100 #CELLS
--- NOTE | 2020-05-30 07:59 | NUR ---
Message sent to Rena Tay for possible evaluation.
[2020-05-30 08:00] VITALS: BP 145/100
--- NOTE | 2020-05-30 08:00 | NUR ---
Full assessment. Oriented to person and place. Unsteady, tremulous. Incontinent of urine. Kristen care given and brief changed. Assisted up to chair w/ 2 assists. Breakfast ordered.
--- NOTE | 2020-05-30 09:57 | NUR ---
attempted to talk with client and assess for needs, he is sitting in a chair , he knows who he is and he is otherwise not able to converse, at this point i would have to interview him when he is more able to talk to determine his needs, but according to record he does drink and so the plan would be to get him into outpatient DOA care and that would need to be at [facility] or [facility] because he is a self pay. discussed with his nurse and the cm staff.
--- NOTE | 2020-05-30 10:21 | NUR ---
Full feed for breakfast. IVF dc'd . K+ supplemented. Rena Tay in to evaulate. Family called in and update was given.
--- NOTE | 2020-05-30 10:30 | NUR ---
PHYSICAL THERAPY Physical Therapy evaluation completed in [facility] with full evaluation to follow. Recommend physical therapy per plan of care and SNF upon discharge. Thank you for this referral. Renetta Ingram PT
--- NOTE | 2020-05-30 10:55 | NUR ---
Occupational Therapy evaluation completed on [facility]U with full evaluation to follow. Recommend occupational therapy per plan of care and SNF upon discharge. Thank you for this referral. Shahnaz Cummings OTR/L
--- NOTE | 2020-05-30 11:14 | NUR ---
[facility] was notified of consult.
[2020-05-30 12:00] VITALS: BP 108/76
--- NOTE | 2020-05-30 12:30 | NUR ---
Returned to bed after breakfast and then up to chair again for lunch.
--- NOTE | 2020-05-30 14:20 | NUR ---
Rosie from [employer] attempted to visit with patient regarding his self pay status and to provide him assistance with filling out possibly medicaid paperwork depending on his income. Rosie was unable to talk with patient due to his lethargic state. Rosie is unable to talk with patient's girlfriend regarding financial issues due to her not being a POA. no other family listed for Rosie to talk with. case management will follow
[2020-05-30 16:00] VITALS: BP 107/86
[2020-05-30 20:00] VITALS: BP 114/78
--- NOTE | 2020-05-30 20:19 | NUR ---
1934 RESTING IN BED WITH EYES CLOSED. APPEARS TO BE SLEEPING. HOB ELEVATED. CALL LIGHT IN REACH. WRIST RESTRAINTS OFF. USED URINAL ON PRIOR SHIFT. HEP LOCK INTACT RA. NO DISTRESS NOTED. NO C/O'S VOICED. COOPERATIVE AT PRESENT. ALERT TO SELF.
--- NOTE | 2020-05-30 22:07 | NUR ---
HAD BM MODERATE AMOUNT YELLOW LIQUID STOOL ON BEDPAN. VOIDED 200CC IN URINAL. COMPLETE BED BATH GIVEN AND LINENS CHANGED. ADULT DIAPER INTACT.
[2020-05-31] VITALS: BP 125/91
--- NOTE | 2020-05-31 00:12 | NUR ---
RESTING IN BED WITH EYES CLOSED. APPEARS TO BE SLEEPING. BED ALARM INTACT.
--- NOTE | 2020-05-31 01:22 | NUR ---
INCONTINENT OF URINE. HAD BM MODERATE AMOUNT YELLOW MUSHY STOOL ON BEDPAN. MARGARET CARE DONE. CALAZYME TO REDDENED MARGARET AREA.
[2020-05-31 04:00] VITALS: BP 145/92
--- NOTE | 2020-05-31 04:15 | NUR ---
INCONTINENT OF LARGE AMOUNT URINE. MARGARET CARE DONE AND ADULT DIAPER CHANGED. SPEECH REMAINS GARBLED.
--- NOTE | 2020-05-31 06:12 | NUR ---
RESTING IN BED WITHOUT C/O'S. REMAINS ALERT TO PERSON. CONDITION GUARDED.
[2020-05-31 06:27] LABS: ALBUMIN 2.3 gm/dl (3.1-4.5); BUN 2 mg/dl (7-24); CHLORIDE 104 mmol/L (98-107); CREATININE 0.48 mg/dL (0.70-1.30); POTASSIUM 3.6 mmol/L (3.5-5.1); SGOT/AST 50 IU/L (3-35); SGPT/ALT 56 U/L (12-78); SODIUM 137 mmol/L (136-145)
[2020-05-31 06:28] LABS: ALKALINE PHOSPHATASE 141 U/L (45-117)
[2020-05-31 06:46] LABS: MEAN CELL VOLUME 98.8 fl (80.0-94.0); MEAN CORPUSCULAR HGB 34.4 pg (27.0-31.0); MEAN CORPUSCULAR HGB CONC 34.8 g/dl (33.0-37.0); PLATELET COUNT AUTOMATED 238 10*3/uL (130-400); RED BLOOD COUNT 3.34 10*6/uL (4.50-5.90); RED CELL DISTRI WIDTH 12.5 % (0-14.5); WHITE BLOOD COUNT 4.8 10*3/uL (4.8-10.8)
[2020-05-31 07:29] LABS: BASOPHILS 1 % (0-1); TOTAL CELLS COUNTED 100 #CELLS
[2020-05-31 07:30] LABS: ACANTHOCYTES FEW
[2020-05-31 07:31] LABS: BURR CELLS FEW; OVALOCYTES FEW; PLATELET SUFFICIENCY NORMAL (NORMAL)
[2020-05-31 07:32] LABS: SCHISTOCYTES FEW
[2020-05-31 08:00] VITALS: BP 123/95
--- NOTE | 2020-05-31 08:22 | NUR ---
0700 Assisted to BSC for moderate amt soft brown stool. Then assisted to chair for breakfast. Much clearer today, less tremulous.
--- NOTE | 2020-05-31 09:35 | NUR ---
PHYSICAL THERAPY Patient seen this am 1;1 for therapy visit and was sitting up in bedside chair upon therapist arrival. Patient identified by name / and joined by OT assistant plant manager for observation this session. Patient reports no c/o's pain at this time and records resting HR 101 bpm prior to transfering sit to stand, MOD A x 2 with use of walker standing support. Patient tolerated < 1 minute static stand, demonstrating several bouts of retrograde posture, requiring MOD therapist assist to prevent falling backwards. Patient also able to ambulate 30'x 1, walker, MIN A, demonstrating very unsteady gait pattern and several LOB during 90/180 turns. Patient needed repeated v/c's to complete all task safely, including proper hand placement during transfers and walker safety / navigation. Patient returned to supine in bed and remained with bed side rails raised, body alarm per nursing for additional safety. Will continue per POC as tolerated, total treatment time 16 minutes. Thomas Dickerson, MUSICAL INSTRUMENT MAKER OR REPAIRER
--- NOTE | 2020-05-31 09:48 | NUR ---
tOOK BREAKFAST INDEPENDENTLY, Then ambulatory w/ PT and walker. Then returned to bed. Dolores called in and spoke briefly w/ pt.
--- NOTE | 2020-05-31 09:50 | NUR ---
OT NOTE Pt was seen this A.M. 1:1 for 20 minute OT session. Upon arrival pt was sitting upright in the recliner. Pt identified by name and and had no complaints at this time. Pt's resting heart rate read 98 bpm. While seated pt doffed and donned B socks with Dianne for inital start over his toes. Multiple sit to stand transfers were then completed from chair level with Dianne X 1 and use of w/w for UE support. Challenged pt's static standing tolerance needed for increased I in self care tasks and functional transfers. Pt was able to tolerate aprox 3 minutes at a time before sitting due to fatigue. Throughout all standing and transfers pt presented with retrograde posture/LOB that required maxA to correct. Pt was able to self maintain upright posture for aprox 5 seconds before requiring maxA to correct retrograde LOB/posture. Functional mobility was then completed to the bedside commode with Dianne and use of w/w. There he transferred on to the commode with CGA and off with Dianne. Functional mobility completed back to the EOB with Dianne and use of w/w. There he transferred sit to supine with Dianne and was left with call light in hand, bed rails up, body alarm activated, and under ICCU nurse supervision. Continue with rec D/C plan to SNF. MARI Terry/Aj
--- NOTE | 2020-05-31 10:00 | NUR ---
per MDT meeting this am, it was discussed that patient's girlfriend would like home health to temporarily visit with patient. patient is self pay. per hospital MECHANICAL RESEARCH ENGINEER he will approved the hospital's home health company to see the patient when he is discharged to home
--- NOTE | 2020-05-31 10:01 | NUR ---
CUSTOMER CONSULTANT REACHED OUT TO MARKEL MEI-PATIENTS GIRLFRIEND. CUSTOMER CONSULTANT INFORMED MARKEL THAT THIS PATIENT HAS BEEN DEAMED INCOMPETENT TO MAKE HIS OWN INFORMED HEALTHCARE DECISION. CUSTOMER CONSULTANT EXPLAINED THE NEED TO APPLY FOR GUARDIANSHIP. MARKEL STATED SHE IS WILLING TO CONTACT AN PLATING DEPARTMENT HELPER TO OBTAIN GUARDIANSHIP. CUSTOMER CONSULTANT PROVIDED MARKEL WITH CONTACT INFORMATION FOR [employer] [facility]CGARRY AND PLATING DEPARTMENT HELPER FIDEL. MARKEL STATED THAT IF THE PATIENT WERE TO RETURN HOME SHE WOULD NEED HELP AND WOULD LIKE HOME HEALTH. HOWEVER, THIS PATIENT IS SELF PAY. PER MARKEL SHE HAS BEEN RESIDING WITH THIS PATIENT FOR 6 YEARS. THIS PATIENT RECENTLY APPLIED FOR SSI AND USED PLATING DEPARTMENT HELPER VIVIEN.
[2020-05-31 12:00] VITALS: BP 117/92
--- NOTE | 2020-05-31 12:39 | NUR ---
case management faxed patient's information, VNA order and face to face to Melina at [facility]. will notify her when patient is medically stable for discharge
[2020-05-31 16:00] VITALS: BP 104/78
[2020-05-31 20:00] VITALS: BP 110/76
--- NOTE | 2020-05-31 21:05 | NUR ---
ROBAXIN FOR MUSCLE CRAMPING.
--- NOTE | 2020-05-31 21:45 | NUR ---
ROBAXIN EFFECTIVE. PT WITH EYES CLOSED, RESPIRATIONS UNLABORED, BODY RELAXED.
--- NOTE | 2020-05-31 22:41 | NUR ---
PT ASSISTED UP TO BSC FOR BM. COMPLETE BATH AND UNOCCUPIED BED LINEN CHANGE DONE AT THIS TIME.
[2020-06-01] VITALS: BP 132/80
--- NOTE | 2020-06-01 02:16 | NUR ---
AGAIN, PT ATTEMPTING TO GET OOB TO VOID IN URINAL. BECAUSE HE IS IN LINE OF SIGHT, I RAN OVER TO ASSIST HIM HE CONTINUES TO BE EXTREMELY UNSTEADY ON HIS FEET. HE CLAIMS HE NEEDS TO LEAVE "TO GO TO WORK". REORIENTED PT.
--- NOTE | 2020-06-01 03:49 | NUR ---
PT RESTLESS, TRYING TO GET OOB, ASSISTED TO VOID IN URINAL. HE VOIDED 100CC OF YELLOW URINE. VS TAKEN/ASSESSMENT COMPLETE. PT PLACED ON RUG WEAVER THAT HE REPEATEDLY CONTINUES TO REMOVE.
[2020-06-01 04:00] VITALS: BP 139/98
--- NOTE | 2020-06-01 06:26 | NUR ---
PT AGAIN, VOIDING IN URINAL WITH ASSIST.
[2020-06-01 06:49] LABS: CHLORIDE 100 mmol/L (98-107); POTASSIUM 3.8 mmol/L (3.5-5.1); SODIUM 134 mmol/L (136-145)
[2020-06-01 07:02] LABS: BUN 4 mg/dl (7-24); CREATININE 0.53 mg/dL (0.70-1.30)
[2020-06-01 08:00] VITALS: BP 131/84
--- NOTE | 2020-06-01 09:00 | NUR ---
patient will return home with girlfriend and have [facility] visit. case management/community mental health social worker will follow for any other home needs
--- NOTE | 2020-06-01 09:40 | NUR ---
PHYSICAL THERAPY TREATMENT TIME: 09:40 AM 18 MINUTES PRESENTATION: Patient was supine in bed with head of bed elevated Patient is connected to monitor Identified by name and on wristband INFORMED CONSENT FOR TREATMENT Vitals WNL COMPLAINTS: No report of LBP by patient Tremors in UEs /hands WB STATUS: No WB restrictions ASSSITIVE DEVICE: Wh Walker TRANSFERS: SUpine <> sit EOB: SBA Sitting on EOB: SBA STS <> EOB: CGA TREATMENT: GAIT with Wh Walker and CGA for 68' x 1 with verbal cues for upright posture and staying within JOZEF of Walker. Verbal cues for staying within JOZEF, as patient turned 180 degrees GUERRAAi FLETCHER PRESENT WITNESS TO THIS TREATMENT Seated Bilateral LE ther ex x 10 reps each in all planes of movement for strengthening the LEs in order to improve patient's functional mobility. RESPONSE TO TREATMENT: Patient tolerated treatment with no LOB or SOB Patient is CGA STS from EOB Patient with severe tremors in UEs during treatment CONCLUSION: Patient was left in bedside chair with call light within reach Patient disconnected from portable monitor and connected to Wall monitor Chair alarm tested and attached to patient JESSIE MCCOY MANAGER CLINICAL APPLICATIONS
--- NOTE | 2020-06-01 10:00 | NUR ---
OT NOTE Pt was seen this A.M. 1:1 for 25 minute OT session. Upon arrival pt was supine in bed. Pt identified by name and and had no complaints of pain at this time however reported "I just feel nervous" no further explanation on that statement was made. Pt's resting heart rate read 97 bpm. Pt transferred supine to sit EOB with SBA. While sitting EOB pt donned B socks with Dianne for inital start over his toes. Sit to stand completed from bed level with CGA and use of w/w for UE support. Challenged pt's static standing tolerance needed for increased I in self care tasks and functional transfers, pt was able to tolerate aprox 5 minutes before sitting due to fatigue. Functional mobility completed to the bedside commode and back with Dianne for assist with walker. Pt presented with poor walker safety due to staying to far away and being impuslive increasing risk of falls. Once seated pt completed BUE AROM over all planes of motion for 1 X 10 to increase and restore maximum functional use. Pt was left sitting upright in the recliner with call light in hand, tray table in place, and body alarm activated for safety. Continue with rec D/C plan to SNF. ANTONIO Terry
[2020-06-01 12:00] VITALS: BP 122/87
--- NOTE | 2020-06-01 13:32 | NUR ---
PT CONTINUES TO TRY AND GET OOB WITHOUT ASSISTANCE. EDUCATED PT AGAIN ON HIS NEED FOR ASSISTANCE DUE TO HIM BIENG TO WEAK AND UNSTEADY ON HIS FEET. PT STATED "I KNOW" BUT WILL CONT. TO TRY AND GET OOB BY HIMSELF.
[2020-06-01 16:00] VITALS: BP 120/86
--- NOTE | 2020-06-01 16:02 | NUR ---
PT RESTING. NO ACUTE DISTRESS NOTED.
--- NOTE | 2020-06-01 18:21 | NUR ---
PT RESTING. NO ACUTE DISTRESS NOTED.
--- NOTE | 2020-06-01 19:40 | NUR ---
PATIENT ALERT AND ORIENT TO PERSON PLACE MONTH AND PRESIDENT. ABLE TO FOLLOW DIRECTIONS. ASSISTANCE NEEDED TO USE URINAL, PATIENT WEAK. NO COMPLAINTS OF PAIN. COMPLAINTS OF NUMBNESS SENSATION FROM SHINS DOWN. STATES NUMBNESS SENSATION IS IMPROVING SINCE PREVIOUSLY WAS HAVING NUMBNESS FEELING FROM KNEES DOWN. DENIES HEADACHE, ANXIOUS, OR AGITATION. NO SIGNS OF HAND TEMORS.
[2020-06-01 20:00] VITALS: BP 120/84
--- NOTE | 2020-06-01 21:43 | NUR ---
PATIENT SITS UP TO ATTEMPT USING URINAL. DOES NOT USE CALL LIGHT EVEN AFTER REINSTRUCTED REAGRDING USAGE OF CALL LIGHT. PATIENT ALERT AND ORIENT TO PERSON AND PLACE NO SITUATION. ABLE TO FOLLOW DIRECTIONS. BED ALARM UNABLE FUNCTION DUE TO PATIENT LOW BODY WEIGHT. PATIENT IS A CLEAR LINE OF VISION FROM NURSES' STATION.
[2020-06-02] VITALS: BP 113/78
--- NOTE | 2020-06-02 01:54 | NUR ---
PT ASSISTED UP TO BSC, PT PASSED LARGE BM. NORMAL COLOR AND CONSISTANCY. FOWL SMELLING. PT ASSISTED BACK TO BED. PT REMAINS AWAKE AND ALERT BUT MILDLY DISORIENTED AT THIS TIME ORIENT TO PERSON AND PLACE. PT REORIENTS EASILY. COOPERATIVE IN BED, RESTING COMFORTABLY.
[2020-06-02 05:36] LABS: BUN 5 mg/dl (7-24); CHLORIDE 96 mmol/L (98-107); CREATININE 0.56 mg/dL (0.70-1.30); POTASSIUM 3.7 mmol/L (3.5-5.1); SODIUM 129 mmol/L (136-145)
--- NOTE | 2020-06-02 07:23 | NUR ---
PATIENT SITTING ON EDGE OF BED, REQUESTING SHOWER, PATIENT SLIGHTLY CONFUSED, KNOWS HE IS IN HOSPITAL BUT DOESNT KNOW WHERE AND DOESNT KNOW DATE. PATIENT INITIALLY REQUESTED SHOWER BUT THEN STATES HE WOULD RATHER WASH OFF IN BED. PATIENT PROVIDED WITH SUPPLIES TO GET CLEANED UP, DENIES NEEDING ASSISTANCE. REORIENTATION PROVIDED, PATIENT EDUCATED ON NEED TO STAY IN BED. VERBALIZED AGREEMENT. WITHIN SIGHT OF THIS RN. WILL MONITOR
--- NOTE | 2020-06-02 07:27 | NUR ---
PROVIDED WITH MENU TO ORDER BREAKFAST PER REQUEST. REORIENTED THAT IT IS IN THE MORNING.
[2020-06-02 08:00] VITALS: BP 114/84
--- NOTE | 2020-06-02 08:49 | NUR ---
PATIENT UP WITH PHYSICAL THERAPY, WALKING AROUND IN ICU, 1 ASSIST. TOLERATING WELL
--- NOTE | 2020-06-02 08:50 | NUR ---
PHYSICAL THERAPY Patient seen this am 1;1 for therapy visit and was sitting up on EOB with OT office support assistant present upon therapist arrival. Patient identified by name / and reports no new c/o's at this time. Patient was a little impulsive this morning, attempting to stand / begin activity with decreased focus on task. Patient transfers sit to stand with CGA and ambulates MIN A, use of wh walker, 40'x 1, demonstrating decreased stride and bouts of unsteady gait pattern, especially during all 90/180 turns. Patient also needed v/c to keep his head / eyes up during gait ex and returned to supine in bed with mild fatigue. Patient remained in bed with call light, tray table and bed side rails raised for safety, under ICCU Nursing Supervision. Patient is still jocelynn risk for falling and will continue per POC as tolerated, total treatment time 14 minutes. Thomas Dickerson, SMALL ARMS REPAIRER
--- NOTE | 2020-06-02 08:55 | NUR ---
OT NOTE Pt was seen this A.M. 1:1 for 25 minute OT session. Upon arrival pt was supine in bed. Pt identified by name and and had no complaints at this time. Pt's resting heart rate read 85 bpm. Pt transferred supine to sit EOB with SBA and multiple verbal prompts for command follow. While sitting EOB pt completed BUE AROM over all planes for 2 X 10 to increase and restore maximum functional use. He then doffed and donned B socks with SBA while sitting EOB. Sit to stand completed from bed level with CGA and use of w/w for UE support. Challenged pt's static standing tolerance needed for increased I in self care tasks and functional transfers, pt was able to tolerate aprox 3 minutes before sitting due to poor attention to task. Functional mobility completed to the bedside commode with Dianne for assist with walker navigation and bouts of unsteady stance. Constant verbal prompts provided throughout to slow down due to being impulsive and increasing risk of falls, poor carry over. Pt transferred on/off bedside commode with CGA and use of w/w. Functional mobility completed back to the EOB with Dianne again due to poor carry over of walker safety and navigation. Throughout activity pt's heart rate elevated to 102 bpm. Pt transferred back into bed sit to supine with SBA and repositioned with maxA X 2. There he was left with call light in hand, bed rails up, and under ICCU supervision. Continue with rec D/C plan to SNF. ANTONIO Terry
--- NOTE | 2020-06-02 09:26 | NUR ---
DRS IN TO ROUND ON PATIENT, PATIENT AWAKE AND EATING BREAKFAST.
--- NOTE | 2020-06-02 09:42 | NUR ---
EQUIPMENT SERVICE LEAD REACHED OUT TO PATIENTS GIRLFRIEND ABOUT SNF SHE IS AGREEABLE IF THE PATIENT IS AGREEABLE. EQUIPMENT SERVICE LEAD EXPLAINED THAT WOULD NEED TO COMPLETE A PENDING MEDICAID FORM FOR [facility]. EQUIPMENT SERVICE LEAD EMAILED IT TO HER. MARKEL STATED SHE DID FILL OUT A MEDICAID FORM ON BEHALF OF THE PATIENT YESTERDAY.
--- NOTE | 2020-06-02 10:00 | NUR ---
DRESSING TO LEFT WRIST CHANGED AT THIS TIME. TOLERATED WELL.
--- NOTE | 2020-06-02 10:24 | NUR ---
PATIENT MEDICATED WITH ATIVAN PER DR ORDERS FOR INCREASED ANXIETY AND AGITATION. PATIENT BEING VULGAR WITH STAFF, SWEARING AND BECOMES VERY ANGRY WITH ANY REORIENTATION ATTEMPTS. WILL MONITOR FOR EFFETIVENESS
--- NOTE | 2020-06-02 11:24 | NUR ---
PATIENT RESTING IN BED, EYES ARE OPEN BUT PATIENT HAS STOPPED GETTING OUT OF BED CURRENTLY. ATIVAN SEEMS TO HAVE BEEN EFFECTIVE
[2020-06-02 12:00] VITALS: BP 99/60
--- NOTE | 2020-06-02 12:20 | NUR ---
Nutritional Support Services Note: Appetite is fair to good for meals. He receives a regular diet as ordered with Ensure po TID with meals. Ht.5'9 Wt.117# IBW 150-170. He is approximately 33# under lower limit of IBW range. Staff to encourage intake. Will provide pt with a night snack. Wound noted to left forearm. Will follow as needed. Akila Viera Rdn Ld
--- NOTE | 2020-06-02 13:57 | NUR ---
RN ACCESS ATTEMPTED TO SPEAK WITH THE PATIENT. HE IS UNABLE TO MAKE SENSE OF THE QUESTIONS THIS RN ACCESS WAS ASKING HIM. RN ACCESS REACHED OUT TO ZEINAB WHO STATED THE PATIENTS GIRLFRIEND WOULD BE ABLE TO SIGN THEIR MEDICAID SCREENING FORMS. ZEINAB ALSO STATED THAT SHE WOULD NEED A COPY OF THE MEDICAID APPLICATION TO SUBMIT WITH THE FROM (KE IN MED ASSIST IS OUT OF THE OFFICE TODAY). RN ACCESS WILL FAX THE REFERRAL TO HAVE THEM LOOK AT IT. RN ACCESS CALLED PATIENT DELFINO JEAN BAPTISTE, AND LEFT A VOICEMAIL.
--- NOTE | 2020-06-02 14:28 | NUR ---
PATIENT CONTINUES TO GET OUT OF BED WITHOUT ASSISTANCE, STATES HE IS GOING DOWNSTAIRS AND THAT HE NEEDS TO GO SOMEWHERE. PATIENT EXPERIENCING AUDITORY HALLICINATIONS AND TALKING WITH SOMEONE WHO IS NOT THERE. MULTIPLE REORIENTATION ATTEMPTS WERE MADE BUT WERE UNSUCCESSFUL AND PATIENT BECOMES ANGRY AND BEGINS SWEARING WITH ANY CORRECTION. RN WILL CONTINUE TO MONITOR
--- NOTE | 2020-06-02 15:47 | NUR ---
PHYSICAL THERAPY CO-SIGN I approve of the Physical Therapy notes written above. Renetta Ingram PT
[2020-06-02 16:00] VITALS: BP 114/68
--- NOTE | 2020-06-02 17:14 | NUR ---
DINNER ORDERED FOR PATIENT, RUNNING TRAY ORDERED
--- NOTE | 2020-06-02 18:09 | NUR ---
PATIENT AGAIN BEING NASTY TO THIS RN. YELLING OUT AND CUSSING, STATES HE IS NOT GOING TO TAKE HIS PILLS. STATES HE DOESNT NEED THEM. VERY CONFUSED, DOESNT KNOW WHERE HES AT, STATED HE WANTS TO GO GET CEREAL, THEN STATES HE NEEDS TO GET SOMETHING HOT TO EAT. CONTINUES TO TRY TO GET OUT OF BED.
--- NOTE | 2020-06-02 18:14 | NUR ---
PATIENT HAS GOTTEN OUT OF BED AND WALKED TO THE NURSES STATION. UNABLE TO SET BED ALARM DUE TO PATIENT NOT WEIGHING ENOUGH AND IT CONTINUOUSLY GOES OFF. PATIENT CONFUSED, REFUSING TO EAT HIS DINNER THATS IN FRONT OF HIM, REQUESTING SOMETHING TO EAT CALLED "TORO" RN PROVIDED REORIENTATION ATTEMPTS BUT NONE WERE SUCCESSFUL. NEW DINNER ORDERED FOR PATIENT .
--- NOTE | 2020-06-02 19:27 | NUR ---
ATIVAN GIVEN FOR INCREASED AGITATION, PATIENT DISORIENTED, SAYING HES NOT GOING TO THE HOSPITAL, REORIENTATION PROVIDED WITH NO SUCCESS. WILL MONITOR
[2020-06-02 20:00] VITALS: BP 116/79
--- NOTE | 2020-06-02 20:00 | NUR ---
PT IN BED AT THIS TIME. HAS ATTEMPTED TO GET OUT OF BED SEVERAL TIMES. VERY UNSTEADY GAIT. ASSISTED BACK INTO BED WITH ATTEMPTS TO REORIENT PT. PT AGITATED AND WANTS TO TO UPSTAIRS AND NOT TO SLEEP IN THE KITCHEN. ATTEMPTS TO REORIENT PT HAVE BEEN UNSUCCESSFUL. HEPLOCK PATENT. NO ACUTE DISTRESS NOTED. RESP NONLABORED.
--- NOTE | 2020-06-02 21:25 | NUR ---
PT VERY RESTLESS AND CONFUSED, COMBATIVE. PT KEEPS ATTEMPTING TO GET OUT OF BED. ATTEMPTING TO HIT NURSES AND CURSING. DR VIERA NOTIFIED AND NEW ORDER FOR 1:1.
[2020-06-03] VITALS (7 sets, daily range): BP systolic 78–115; BP diastolic 48–82
--- NOTE | 2020-06-03 02:30 | NUR ---
PT CONTINUES TO BE COMBATIVE AND YELLING OUT. SEVERAL ATTEMPTS TO REORIENT PT AND KEEP HIM IN BED. DR SHANKS NOTIFIED.
[2020-06-03 05:50] LABS: BUN 9 mg/dl (7-24); CHLORIDE 98 mmol/L (98-107); POTASSIUM 3.7 mmol/L (3.5-5.1); SODIUM 132 mmol/L (136-145)
--- NOTE | 2020-06-03 10:36 | NUR ---
Mostly sleeping, full feed for breakfast. 1:[address] Fu in to [facility].
--- NOTE | 2020-06-03 12:05 | NUR ---
Hypotensive 78/[address] Miranda was notified.
--- NOTE | 2020-06-03 15:00 | NUR ---
Full feed for lunch. co-operative.
--- NOTE | 2020-06-03 18:17 | NUR ---
Assisted up to chair for dinner. Unsteady to stand, Full feed. Took dinner well.
--- NOTE | 2020-06-03 18:40 | NUR ---
IV site to LA reddened and painful dc'd and re-started to RA. Returned to bed after dinner. Pleasent and c-operative oriented to place and self.
--- NOTE | 2020-06-03 20:00 | NUR ---
PT RESTING IN BED WITH EYES CLOSED, AWAKENS WITH EASE, CONFUSED TO SURROUNDINGS, REORIENTED. RESP NONLABORED. NO ACUTE DISTRESS NOTED. NO COMPLAINTS VOICED. ZOEY PATENT.
[2020-06-04] VITALS: BP 92/59
[2020-06-04 04:00] VITALS: BP 91/64
[2020-06-04 07:07] LABS: BASO # 0.1 10*3/uL (0.0-0.1); BASO % 1.2 % (0.0-1.0); EOS % 0.5 % (1.0-4.0); HEMATOCRIT 36.7 % (42.0-52.0); LYMPH # 1.3 10*3/uL (1.3-4.4); LYMPH % 15.8 % (27.0-41.0); MEAN CELL VOLUME 101.9 fl (80.0-94.0); MEAN CORPUSCULAR HGB 35.3 pg (27.0-31.0); MEAN CORPUSCULAR HGB CONC 34.6 g/dl (33.0-37.0); MEAN PLATELET VOLUME 10.8 fl (9.6-12.3); MONO # 0.9 10*3/uL (0.1-1.0); MONO % 10.7 % (3.0-9.0); NEUT # 5.8 10*3/uL (2.3-7.9); NEUT % 70.7 % (47.0-73.0); PLATELET COUNT AUTOMATED 465 10*3/uL (130-400); RED CELL DISTRI WIDTH 12.4 % (0-14.5); WHITE BLOOD COUNT 8.1 10*3/uL (4.8-10.8)
[2020-06-04 07:28] LABS: BUN 9 mg/dl (7-24); CHLORIDE 99 mmol/L (98-107); CREATININE 0.66 mg/dL (0.70-1.30); POTASSIUM 3.9 mmol/L (3.5-5.1); SODIUM 133 mmol/L (136-145)
[2020-06-04 08:00] VITALS: BP 116/75
--- NOTE | 2020-06-04 08:58 | NUR ---
Awake and alert. Disoriented to time. Partial bed bath and then up to chair for breakfast. Independently took breakfast. Dr. Garcia in to evaulate. Dressing removed to left swrist. Small scrath present , Not re-dressed.
[2020-06-04 12:00] VITALS: BP 92/66
[2020-06-04 16:00] VITALS: BP 92/74
[2020-06-04 20:00] VITALS: BP 91/70
--- NOTE | 2020-06-04 20:12 | NUR ---
1944 RESTING IN BED WATCHING TV. ALERT AND PLEASANT. COOPERATIVE. NO DISTRESS NOTED. HEP LOCK INTACT. NO EVIDENCE DT'S NOTED. WILL CONT TO MONITOR.
--- NOTE | 2020-06-04 21:07 | NUR ---
TYLENOL 2 PO GIVEN FOR C/O'S H/A. VISTARIL PO GIVEN FOR SLEEP. WILL MONITOR.
--- NOTE | 2020-06-04 22:07 | NUR ---
EARLIER MEDS EFFECTIVE. RESTING IN BED WITH EYES CLOSED. APPEARS TO BE SLEEPING.
--- NOTE | 2020-06-04 23:20 | NUR ---
PT'S B/P 92/[address] ARM[address] SWEENEY NOTIFIED, ORDERS RECEIVED.
[2020-06-05] VITALS: BP 82/62
[2020-06-05 04:00] VITALS: BP 93/66
[2020-06-05 06:14] LABS: BUN 12 mg/dl (7-24); CHLORIDE 101 mmol/L (98-107); CREATININE 0.66 mg/dL (0.70-1.30); POTASSIUM 3.9 mmol/L (3.5-5.1); SODIUM 134 mmol/L (136-145)
[2020-06-05 06:16] LABS: BASO # 0.1 10*3/uL (0.0-0.1); BASO % 1.8 % (0.0-1.0); EOS # 0.1 10*3/uL (0.0-0.4); EOS % 0.9 % (1.0-4.0); HEMATOCRIT 32.9 % (42.0-52.0); LYMPH # 1.4 10*3/uL (1.3-4.4); LYMPH % 18.1 % (27.0-41.0); MEAN CELL VOLUME 103.5 fl (80.0-94.0); MEAN CORPUSCULAR HGB 35.5 pg (27.0-31.0); MEAN CORPUSCULAR HGB CONC 34.3 g/dl (33.0-37.0); MEAN PLATELET VOLUME 10.6 fl (9.6-12.3); MONO % 13.1 % (3.0-9.0); NEUT # 5.1 10*3/uL (2.3-7.9); NEUT % 64.8 % (47.0-73.0); PLATELET COUNT AUTOMATED 451 10*3/uL (130-400); RED BLOOD COUNT 3.18 10*6/uL (4.50-5.90); RED CELL DISTRI WIDTH 12.3 % (0-14.5); WHITE BLOOD COUNT 7.9 10*3/uL (4.8-10.8)
--- NOTE | 2020-06-05 07:45 | NUR ---
PHYSICAL THERAPY Patient seen this am 1:1 for therapy visit and supine in bed upon therapist arrival. Patient identified by name / and joined by OT front office medical assistant for observation this moring. Patient was very impulsive this session, attempting to climb over bed side rails, then standing up attempting to walk without therapist instruction. Patient transfered sit to stand CGA, then ambulated with use of wh walker, 40'x 2, demonstrating bouts of increased gait velocity, POOR walker safety / navigation as he bumped into several objects along the way. Patient tolerated eyes open / closed x 10 seconds without LOB and was able to take 3-5 backward steps, needing v/c for improved walker safety / step sequence. Patient returned to bedside chair and remained with body alarm under ICCU nursing Supervision. Will continue per POC as tolerated, total treatment time 16 minutes. Thomas Dickerson, INTERACTIVE GRAPHIC DESIGNER
--- NOTE | 2020-06-05 07:50 | NUR ---
OT NOTE Pt was seen this A.M. 1:1 for 18 minute OT session. Upon arrival pt was supine in bed. Pt identified by name and and had no complaints at this time other than "wanting out of here." Pt transferred supine to sit EOB with SBA. While sitting EOB pt donned B socks with SBA. Sit to stand completed from bed level with CGA and use of w/w for UE support. Functional mobility completed around his room with CGA and use of w/w. Throughout pt required constant verbal prompts for slowing down due to be very impulsive increasing risk of falls. Pt presented with poor carry over resulting in two LOB due to being impulsive that required Dianne to correct. Challenged pt's dynamic standing balance while weight shifting, crossing midline, and reaching over all planes. Pt was able to maintain F+ standing balance throughout. Pt tolerated aprox 5 minutes of standing activities before sitting due to fatigue. Pt was left sitting upright in the recliner with call light in hand, tray table in place, and body alarm activated for safety. Continue with rec D/C plan to SNF. MARI Terry/Aj
--- NOTE | 2020-06-05 08:10 | NUR ---
VISTARIL GIVEN FOR ANXIETY & HALLUCINATIONS - PATIENT WANTING TO GO HOME
--- NOTE | 2020-06-05 11:16 | NUR ---
DR MO IN TO SEE PT. ORDERED FOR PT TO BE DISCHARGED TODAY IF PT'S GIRLFRIEND,MARKEL, CAN COME AND GET HIM. I SPOKE WITH MARKEL ON THE PHONE AND SHE CAN BE HERE TO PICK PT UP IN A COUPLE OF HOURS. DR MO UPDATED.
--- NOTE | 2020-06-05 12:55 | NUR ---
[facility] D/C'D INTACT. PT REFUSES DISCHARGE PHOTOS OF SKIN TEAR.
--- NOTE | 2020-06-05 13:54 | NUR ---
PT WANTS TO LEAVE. HE DOES NOT WANT TO WAIT ON HIS RIDE , MARKEL. PT STATED "I'VE BEEN HERE FOR 2 DAMN WEEKS AND NOW SHE IS MAKING ME STAY HERE ALL AFTERNOON". PT WALKED DOWN TO THE LOBBY. HE DID COME BACK AFTER THE NURSE INFORMED HIM HE NEEDED TO WAIT FOR HIS RIDE. I DID CALL MARKEL AND SHE STATED THAT SHE HAD HUNG UP ON THE PT WHEN HE STARTED YELLING AT HER ON THE PHONE. MARKEL THEN STATED SHE WILL BE DOWN TO GET THE PT SHORTLY. I DID GO OVER PT'S DISCAHRGE INSTRUCTIONS AND FOLLOW UP CARE WITH MARKEL.
--- NOTE | 2020-06-05 14:06 | NUR ---
DC TO HOME WITH GIRLFRIEND
--- NOTE | 2020-06-05 14:11 | NUR ---
TAKEN OUT (AMBULATED) - GAIT PRAVIN - TYLER & DC INSTRUCTIONS WITH PATIENT & REVIEWED WITH VIA PHONE BY PRIMARY NURSE
--- NOTE | 2020-06-06 07:42 | NUR ---
OCCUPATIONAL THERAPY CO-SIGN I approve of the Occupational Therapy notes written above. PROMISE POWERS, OTR/L
--- NOTE | 2020-06-06 07:42 | NUR ---
PHYSICAL THERAPY CO-SIGN I approve of the Physical Therapy notes written above. Renetta Ingram PT
== END 2020-06-05 14:11 | disposition home or self-care (01) | DRG 872 ==
LOC: ED 13:41 → ICCU 15:40 → EDHOLD 15:40 → 4E 15:40 → ICCU 05-23 02:55
PROVIDERS: Emergency Medicine; Internal Medicine; Social Worker Clinical; Student in an Organized Health Care Education/Training Program; ADMIT Internal Medicine; ATTEND Internal Medicine
DX: A41.9 Sepsis, unspecified organism (principal); N39.0 Urinary tract infection, site not specified; R64 Cachexia; F10.231 Alcohol dependence with withdrawal delirium; E87.2 Acidosis; D61.818 Other pancytopenia; Z68.1 Body mass index [BMI] 19.9 or less, adult; I71.2 Thoracic aortic aneurysm, without rupture; K21.9 Gastro-esophageal reflux disease without esophagitis; G62.1 Alcoholic polyneuropathy; I48.0 Paroxysmal atrial fibrillation; R15.9 Full incontinence of feces; R32 Unspecified urinary incontinence; M62.84 Sarcopenia; R73.9 Hyperglycemia, unspecified; D69.6 Thrombocytopenia, unspecified; D53.9 Nutritional anemia, unspecified; Z20.828 Contact with and (suspected) exposure to other viral communicable diseases; F12.10 Cannabis abuse, uncomplicated; E87.6 Hypokalemia; I10 Essential (primary) hypertension; L80 Vitiligo; M54.5 Low back pain; G89.29 Other chronic pain; E83.51 Hypocalcemia; E83.42 Hypomagnesemia; Z82.49 Family history of ischemic heart disease and other diseases of the circulatory system

== ENCOUNTER → 2020-06-29 | Outpatient (CLI) | payer MEDICAID ==
[~2020-06-29] MED LIST changes: +PRILOSEC20 M1 PO
== END | disposition home or self-care (01) ==
LOC: RESCLI 03:56
PROVIDERS: ATTEND Internal Medicine Nephrology
DX: I10 Essential (primary) hypertension (principal); M54.5 Low back pain; G89.29 Other chronic pain; K64.9 Unspecified hemorrhoids; F12.10 Cannabis abuse, uncomplicated; K86.0 Alcohol-induced chronic pancreatitis; K21.9 Gastro-esophageal reflux disease without esophagitis; I71.2 Thoracic aortic aneurysm, without rupture

== ENCOUNTER 2022-01-23 18:05 | Emergency (ER) | payer OTHER ==
[~2022-01-23] VITALS: Wt 68.0 kg
[2022-01-23] MEDS ORDERED: Lopressor25 MG PO (18:31)
[2022-01-23] MEDS ORDERED: MEDROL DOSEPAK4 MG PO (20:15)
[2022-01-23] MEDS ORDERED: ULTRAM50 MG PO (20:15)
[2022-01-23] MEDS ORDERED: METHOCARBAMOL750 M1 PO (20:15)
== END 2022-01-23 20:20 | disposition home or self-care (01) ==
LOC: ED 18:05
DX: M19.09 Primary osteoarthritis, other specified site (principal)

== ENCOUNTER → 2022-11-09 | Outpatient (CLI) | payer OTHER, MEDICAID ==
[~2022-11-09] MED LIST changes: +AUGMENTIN 500500 M1 PO; +Lopressor25 MG PO; +METHOCARBAMOL750 M1 PO; +NATURE'S BLEND F1 MG PO; +ULTRAM50 MG PO; +VITAMIN B-1100 M1 PO
[2022-11-09 07:44] LABS: BASO # 0.1 10*3/uL (0.0-0.1); BASO % 0.9 % (0.0-1.0); EOS # 0.3 10*3/uL (0.0-0.4); EOS % 4.3 % (1.0-4.0); HEMATOCRIT 43.5 % (42.0-52.0); LYMPH # 1.6 10*3/uL (1.3-4.4); LYMPH % 27.5 % (27.0-41.0); MEAN CELL VOLUME 99.1 fl (80.0-94.0); MEAN CORPUSCULAR HGB 33.5 pg (27.0-31.0); MEAN CORPUSCULAR HGB CONC 33.8 g/dl (33.0-37.0); MONO # 0.8 10*3/uL (0.1-1.0); MONO % 13.3 % (3.0-9.0); NEUT # 3.1 10*3/uL (2.3-7.9); NEUT % 53.8 % (47.0-73.0); PLATELET COUNT AUTOMATED 298 10*3/uL (130-400); RED BLOOD COUNT 4.39 10*6/uL (4.50-5.90); RED CELL DISTRI WIDTH 13.5 % (0-14.5); WHITE BLOOD COUNT 5.8 10*3/uL (4.8-10.8)
[2022-11-09 08:24] LABS: ALKALINE PHOSPHATASE 116 U/L (46-116); BUN 10 mg/dl (9-23); CHLORIDE 106 mmol/L (98-107); CHOLESTEROL 118 mg/dL (<200); LDL CHOLESTEROL 51 mg/dL (9-159); POTASSIUM 4.4 mmol/L (3.4-5.1); SGPT/ALT 34 U/L (10-49); TOTAL PROTEIN 6.5 gm/dL (6.0-8.0); TRIGLYCERIDES 119 mg/dl (<150)
== END | disposition home or self-care (01) ==
LOC: LAB 07:24
PROVIDERS: ATTEND Family Medicine
DX: I10 Essential (primary) hypertension (principal); M79.10 Myalgia, unspecified site; E16.2 Hypoglycemia, unspecified; D53.9 Nutritional anemia, unspecified

== ENCOUNTER 2023-03-04 11:53 | Emergency (ER) | payer OTHER, MEDICAID ==
[~2023-03-04] VITALS: Ht 177.8 cm; Wt 72.6 kg
== END 2023-03-04 14:16 | disposition left against medical advice (07) ==
LOC: ED 11:53
DX: M25.562 Pain in left knee (principal); M79.89 Other specified soft tissue disorders; Z53.21 Procedure and treatment not carried out due to patient leaving prior to being seen by health care provider; V92.09XA Drowning and submersion due to fall off unspecified watercraft, initial encounter; Y93.89 Activity, other specified; Y92.89 Other specified places as the place of occurrence of the external cause; Y99.8 Other external cause status

== ENCOUNTER → 2024-12-09 | Outpatient (CLI) | payer MEDICARE, MEDICAID ==
[2024-12-09 10:09] LABS: HEMATOCRIT 43.5 % (42.0-52.0); MEAN CELL VOLUME 102.6 fl (80.0-94.0); MEAN CORPUSCULAR HGB 34.9 pg (27.0-31.0); MEAN PLATELET VOLUME 9.4 fl (9.6-12.3); RED BLOOD COUNT 4.24 10*6/uL (4.50-5.90); RED CELL DISTRI WIDTH 13.2 % (0-14.5); WHITE BLOOD COUNT 6.4 10*3/uL (4.8-10.8)
[2024-12-09 11:11] LABS: ALKALINE PHOSPHATASE 105 U/L (46-116); BUN 7 mg/dl (9-23); CHLORIDE 105 mmol/L (98-107); CHOLESTEROL 165 mg/dL (<200); CPK 669 U/L (34-171); FREE T4 0.98 ng/dl (0.89-1.76); GAMMA GLUTAMYL TRANSPEPTIDASE 70 U/L (0-73); LDL CHOLESTEROL 68 mg/dL (9-159); POTASSIUM 4.1 mmol/L (3.4-5.1); SGPT/ALT 39 U/L (5-49); TOTAL PROTEIN 7.6 gm/dL (6.0-8.0); TRIGLYCERIDES 75 mg/dl (<150); VITAMIN D, 25-HYDROXY 77.6 ng/mL (30-100)
== END | disposition home or self-care (01) ==
LOC: LAB 09:53
PROVIDERS: ATTEND Family Medicine
DX: E78.00 Pure hypercholesterolemia, unspecified (principal); R53.83 Other fatigue; M25.50 Pain in unspecified joint; L03.311 Cellulitis of abdominal wall; F10.20 Alcohol dependence, uncomplicated; M79.10 Myalgia, unspecified site; E55.9 Vitamin D deficiency, unspecified; S30.861A Insect bite (nonvenomous) of abdominal wall, initial encounter; X58.XXXA Exposure to other specified factors, initial encounter; Y93.89 Activity, other specified; Y92.89 Other specified places as the place of occurrence of the external cause; Y99.8 Other external cause status

== ENCOUNTER → 2024-12-27 | Outpatient (CLI) | payer MEDICARE, MEDICAID ==
[2024-12-27 10:48] LABS: CPK 402 U/L (34-171)
[2024-12-28 05:06] LABS: HBsAG SCREEN Negative (Negative); HCV Ab Non Reactive (Non Reactive); HEP B CORE Ab, IgM Negative (Negative)
== END | disposition home or self-care (01) ==
LOC: LAB 09:25
PROVIDERS: ATTEND Family Medicine
DX: R25.2 Cramp and spasm (principal); R79.89 Other specified abnormal findings of blood chemistry; F10.20 Alcohol dependence, uncomplicated; R10.9 Unspecified abdominal pain

== ENCOUNTER → 2025-01-01 | Outpatient (CLI) | payer MEDICARE, MEDICAID | END | disposition home or self-care (01) | LOC: US 12-24 08:00 | PROVIDERS: ATTEND Family Medicine | DX: R94.5 Abnormal results of liver function studies (principal); I10 Essential (primary) hypertension ==

== ENCOUNTER → 2025-04-02 | Outpatient (CLI) | payer MEDICARE, MEDICAID ==
[2025-04-02 08:45] LABS: MEAN CELL VOLUME 102.9 fl (80.0-94.0); MEAN CORPUSCULAR HGB 35.4 pg (27.0-31.0); MEAN PLATELET VOLUME 9.8 fl (9.6-12.3); NUCLEATED RED BLOOD CELL 0.0 % (0.0-0.0); NUCLEATED RED BLOOD CELL 0.0 10*3/uL (0.0-0.0); PLATELET COUNT AUTOMATED 233.0 10*3/uL (130-400); RED CELL DISTRI WIDTH 11.9 % (0-14.5)
[2025-04-02 09:06] LABS: GAMMA GLUTAMYL TRANSFERASE 133 U/L (0-73); SGPT/ALT 49 U/L (5-49)
[2025-04-02 09:11] LABS: BUN < 5 mg/dl (9-23)
== END | disposition home or self-care (01) ==
LOC: LAB 07:46
PROVIDERS: ATTEND Family Medicine
DX: R74.01 Elevation of levels of liver transaminase levels (principal); Z86.59 Personal history of other mental and behavioral disorders